=== PATIENT | female | born 1975 ===

== ENCOUNTER 2025-07-14 18:08 | Emergency (ER) | payer MEDICAID, SELFPAY ==
[2025-07-14 18:13] VITALS: BP 129/78; PULSE 78; RESP 18; TEMP 36.7; O2SAT 98; BMI 34.0
[2025-07-14 18:26] LABS: MANUAL DIFF FLAG NO
[2025-07-14 18:29] LABS: Hematocrit 42.5 % (37.0-47.0); Hemoglobin 14.3 g/dl (12.0-16.0); Imm Gran Abs Auto 0.02 X10*3/uL (0.00-0.03); Imm Gran Pct Auto 0.3 % (0.0-0.4); Lymphocytes Absolute Auto 2.2 X10*3/uL (1.2-4.9); Mean Corpuscular HGB Conc 33.6 g/dl (31.0-35.0); Mean Corpuscular Hemoglobin 30.1 pg (27.0-33.0); Mean Corpuscular Volume 89.5 fL (80.0-98.0); NRBC Abs Auto 0.000 X10*3/uL (0.0-0.012); NRBC Pct Auto 0.0 /100WBC (0.0-0.2); Platelet Count 337 X10*3/uL (160-400); Red Blood Count 4.75 X10*6/uL (4.20-5.50); White Blood Count 7.4 X10*3/uL (4.8-10.8)
[2025-07-14 18:30] LABS: Appearance Urine Clear; Glucose Urine UA Negative (Negative); PH 6.0 (5.0-9.0); Specific Gravity - Urine 1.015 (1.005-1.025); UMIC TRIGGER UACC YES
--- NOTE | 2025-07-14 18:33 | ED.FEMALEGU ---
HPI - Female Genitourinary General Chief complaint: Urogenital-Female Stated complaint: UTI Time Seen by Provider: 07/14/25 22:30 Source: patient, RN notes reviewed and old records reviewed Mode of arrival: ambulatory Limitations: no limitations History of Present Illness ED Provider: Abby MCMANUS Narrative: 50-year-old female presents for evaluation of pelvic pain and burning with urination. Denies any vaginal discharge. She reports that she has ?swelling inside the vagina. ? She reports she felt as if her symptoms started with a yeast infection and she tried some sjxo-zfv-ajzqide yeast treatment which was unsuccessful. The patient also reports a history of bacterial vaginosis and states this feels similar. She reports that she has been monogamous with 1 partner in his not concerned for sexually transmitted infection Denies any fevers, chills, abdominal pain Related Data Previous Rx's ?Medication ?Instructions ?Recorded fluconazole 150 mg tablet 150 mg PO ONCE #1 tab 07/14/25 metronidazole 0.75 % (37.5 mg/5 1 appful vaginal BID 5 days #70 07/14/25 gram) vaginal gel (Vandazole) grams Allergies Allergy/AdvReac Type Severity Reaction Status Date / Time aspirin Allergy Gastrointestinal Verified 07/14/25 18:16 Upset Sulfa (Sulfonamide Allergy Hives Verified 07/14/25 18:16 Antibiotics) Review of Systems Constitutional: Constitutional: Denies body ache(s), Denies chills and Denies fever(s) Eyes: Eyes: Denies blurry vision ENT: Denies vertigo and Denies dizziness Cardiovascular: Cardiovascular: Denies chest pain Gastrointestinal: Gastrointestinal: Denies abdominal pain Genitourinary: Genitourinary: Denies difficulty voiding, Reports genital pruritis, Reports dysuria, Reports pelvic pain and Denies vaginal discharge Musculoskeletal: Musculoskeletal: Denies back pain Integumentary/Breasts: Skin/Breast: Denies rash Neurologic: Denies vertigo and Denies dizziness PMFSH Social History Social History Use of substances other than those prescribed or required for medical reasons: No Advance Directives: No Advance Directives Information Provided: Yes Physical Exam Vital Signs: Vital Signs: Last Vital Signs Temp 98.0 F 07/15/25 00:02 Pulse 78 07/15/25 00:02 Resp 18 07/15/25 00:02 BP 130/80 07/15/25 00:02 Pulse Ox 99 07/15/25 00:02 O2 Del Method Room Air 07/15/25 00:02 BMI result Body Mass Index 34.0 Const: General: healthy appearing, comfortable, no acute distress, alert and awake Nutritional Appearance: well nourished Orientation/consciousness: patient oriented x3 HEENT: Head: Yes normocephalic and Yes atraumatic Eyes: Eyelids: Yes eyelids normal Conjunctivae: conjunctivae normal Sclerae: sclerae normal Corneas: corneas normal Pupils: Equal, round and reactive pupils present EOM: EOMs intact bilaterally Neck: Neck: Yes full ROM Resp: Effort & Inspection: normal respiratory effort, able to speak in complete sentences and not labored Cardio: Rate: regular rate Rhythm: regular rhythm GI: Inspection: No distended Palpation (GI): Soft to palpation, not firm, nontender, no guarding and not rigid : Other: Patient deferred Skin: General skin exam: elasticity normal Neuro: General: patient oriented x3 Cranial nerves: Yes Equal, round and reactive pupils present and Yes Bilaterally intact EOM present Cognition (Neuro): normal cognition Course Course Course Narrative: RME: 50 year female presents to ED for dysuria any increased urinary frequency without any nausea or vomiting. Labs UA ordered Medications Administered Discontinued Medications Generic Name Dose Route Start Last Admin Trade Name Ruy PRN Reason Stop Dose Admin Fluconazole 150 mg 07/14/25 22:52 07/14/25 23:17 Fluconazole 150 Mg Tablet PO 07/14/25 22:53 150 mg ONCE ONE Administration Medical Decision Making Medical Decision Making [facility] Narrative: 50-year-old female presents for evaluation of vaginal itching and burning. She feels her symptoms are consistent with a UTI, she tried to treat herself with cryr-ekh-wqdznkx medications and was not successful. I recommended a pelvic examination as the patient has already failed zetg-egy-etxqjcd treatment. She would prefer self swabs. Her labs are reassuring, urinalysis is negative for UTI. I agree to give her Diflucan treatment for today and 1 week from today. I do not feel it is appropriate to start oral metronidazole without documentation of bacterial vaginosis or Trichomonas, but I did give her a prescription for vaginal suppositories. Swabs result positive for BV or Trichomonas, we can call in a prescription for metronidazole Differential Diagnosis Differential Diagnoses: The differential diagnosis associated with the presentation includes Vaginitis Urethritis UTI Gonorrhea Chlamydia Lab Data MDM Lab Attestation statement: I reviewed the patient's lab results. No leukocytosis or anemia. Normal platelet count. No significant electrolyte abnormalities warranting dimension. 07/14/25 18:22 07/14/25 18:22 Labs: Lab Results 07/14/25 07/14/25 Range/Units 18:22 23:17 WBC 7.4 (4.8-10.8) X10*3/uL RBC 4.75 (4.20-5.50) X10*6/uL Hgb 14.3 (12.0-16.0) g/dl Hct 42.5 (37.0-47.0) % MCV 89.5 (80.0-98.0) fL MCH 30.1 (27.0-33.0) pg MCHC 33.6 (31.0-35.0) g/dl RDW 12.8 (11.0-16.0) % Plt Count 337 (160-400) X10*3/uL MPV 9.6 (9.4-12.3) fL Immature Gran % (Auto) 0.3 (0.0-0.4) % Neut % (Auto) 60.5 (45-73) % Lymph % (Auto) 29.7 (20-40) % Ware % (Auto) 7.7 (2-11) % Eos % (Auto) 1.3 (0-4) % Baso % (Auto) 0.5 (0-2) % Lymph # (Auto) 2.2 (1.2-4.9) X10*3/uL Ware # (Auto) 0.6 (0.1-1.2) X10*3/uL Eos # (Auto) 0.1 (0.0-0.4) X10*3/uL Baso # (Auto) 0.0 (0.0-0.2) X10*3/uL Abs Immat Gran (auto) 0.02 (0.00-0.03) X10*3/uL Absolute Neuts (auto) 4.5 (2.0-8.3) x10*3/uL Absolute Nucleated RBC 0.000 (0.0-0.012) X10*3/uL Nucleated RBC % (auto) 0.0 (0.0-0.2) /100WBC Sodium 141 (135-145) mmol/L Potassium 3.7 (3.3-5.1) mmol/L Chloride 108 (96-108) mmol/L Carbon Dioxide 25 (22-29) mmol/L Anion Gap 12 (12-20) BUN 14 (9-16) mg/dL Creatinine 0.85 (0.5-1.4) mg/dL Estim Creat Clear Calc 75.1 Estimated GFR > 60 Random Glucose 100 (60-115) mg/dL Calcium 9.2 (8.4-10.2) mg/dL Total Bilirubin 0.4 (0.0-1.0) mg/dL AST 21 (5-31) U/L ALT 24 (0-31) U/L Alkaline Phosphatase 107 (39-117) U/L Total Protein 7.9 (6.5-8.0) g/dL Albumin 4.8 (3.5-5.0) g/dL Beta HCG, Quant < 2 mIU/mL Urine Color Yellow Urine Appearance Clear Urine pH 6.0 (5.0-9.0) Ur Specific Arrey 1.015 (1.005-1.025) Urine Protein Negative (Neg-Trace) mg/dL Urine Glucose (UA) Negative (Negative) mg/dL Urine Ketones Negative (Negative) mg/dL Urine Blood Trace H (Negative) Urine Nitrite Negative (Negative) Ur Leukocyte Esterase Negative (Negative) Urine RBC 3-5 H (0-2) /HPF Urine WBC 0-5 (0-5) /HPF Ur Squamous Epith Cells 0-2 (0-2) /HPF Urine Bacteria None Seen (None Seen) Hyaline Casts 0-2 (0-2) /LPF Urine Test NEGATIVE (NEGATIVE) Chlam trachomat DNA PCR NOT DETECTED (Not Detect.) N.gonorrhoeae DNA (PCR) NOT DETECTED (Not Detect.) T. vaginalis (PCR) NOT DETECTED (Not Detect) Bact vaginosis (PCR) NEGATIVE (Negative) C. krusei/glabrata (PCR) NOT DETECTED (Not Detect) Dominique group (PCR) NOT DETECTED (Not Detect) Discharge Plan Discharge Clinical Impression: Vaginitis Patient Disposition: Home, Self-Care Instructions: Bacterial Vaginosis (ED) Additional Instructions: Your swabs are pending. You were given a dose of Diflucan antifungal medication. Take another dose in 1 week. I recommend using the metronidazole suppository as prescribed. We will call you if there are any concerning findings on the pelvic swabs Prescriptions: New fluconazole 150 mg tablet 150 mg PO ONCE Qty: 1 0RF Rx Instructions: to be taken on 07/21/25 metronidazole [Vandazole] 0.75 % (37.5mg/5 gram) gel 1 appful vaginal BID 5 Days Qty: 70 0RF Interventions: ED Discharge Assessment Last Done: 07/15/25 00:02 Discharge Date/Time: 07/15/25 00:03 Print Language: Malagasy
[2025-07-14 18:38] LABS: UPreg QC Valid YES
[2025-07-14 18:47] LABS: Alanine Aminotransferase 24 U/L (0-31); Albumin Level 4.8 g/dL (3.5-5.0); Alkaline Phosphatase 107 U/L (39-117); Anion Gap 12 (12-20); Aspartate Amino Transferase 21 U/L (5-31); Blood Urea Nitrogen 14 mg/dL (9-16); Calcium 9.2 mg/dL (8.4-10.2); Carbon Dioxide 25 mmol/L (22-29); Chloride 108 mmol/L (96-108); Creatinine Clr Calc Pharmacy 75.1; Estimated Glomerular Filt Rate > 60; Potassium 3.7 mmol/L (3.3-5.1); Sodium 141 mmol/L (135-145); Total Protein 7.9 g/dL (6.5-8.0)
--- OUTSIDE RECORDS SUMMARY | 2025-07-14 22:31 | XMS_ITS | Encounter Summary ---
Author Organization [facility] Address [address] [place] [address] Phone Care Team Providers Care Global Analytics Head Name Role Phone NuhaAdy wu Primary Care Provider +1- [phone] Encounter Details Date Type Department Care Team (Late Contact Info) Description 07/23/2023 Telephone [facility] [place] [address] [place] [phone] Janet Mae Social History Tobacco Use Types Packs/Day Years Used Date Smoking Tobacco: Some Days Cigarettes 0.1 5.6 Started: 12/14/2019 Smokeless Tobacco: Never Comments:pt states 1-2 cigar ettes per day Alcohol Use Standard Drinks/Week Comments Yes 0 (1 standard drink = 0.6 oz pur e alcohol) social AUDIT-C Answer Date Recorded Frequency of Alcohol Consumption 2-4 times a fri10/15/2019 Average Number of Drinks 1 or 2 020 Frequency of Binge Drinking Never 10/02 PHQ-2 Answer Date Recorded PHQ-2 Score 0 02/27/2021 Comments No Sex and Gender Information Value Date Recorded Sex Assigned at Female 04/16/2024 10:24 AM EDT Legal Sex Female 12:31 AM EDT Gender Identity Not on file Sexual Orientation Not on file documented as of this encounter Plan of Treatment Not on file documented as of this encounter Visit Diagnoses Not on filedocumented in this encounter Additional Health Concerns Assessment Noted Time PHQ-9 Depression Total Score: 0 02/28/20 21 4:24 PM EDT A Body Mass Index follow-up plan has been documented for the patient 03/01/2021 8:33 AM EDT PHQ-2 Depression Total Score: 0 02/28/20 21 4:24 PM EDT documented as of this encounter Care Teams Global Analytics Head Relationship Specialty Start Date End Date Ady Breen DO [address] [place] [address] [place] [address] PCP - General 09/23/17 documented as of this encounter
--- OUTSIDE RECORDS SUMMARY | 2025-07-14 22:31 | XMS_ITS | Encounter Summary ---
Author Organization [facility] Address [address] [facility] [place] [address] Phone Care Team Providers Care Webbing Seamer Pound Net Name Role Phone NuhaAdy wu Primary Care Provider +1- [phone] Encounter Details Date Type Department Care Team (Late st Contact Info) Description 08/10/2021 Telephone [facility] [place] [address] [place] [phone] Associates, Psychiatric [address] [place] [address] Social History Tobacco Use Types Packs/Day Years Used Date Smoking Tobacco: Some Days Cigarettes Smokeless Tobacco: Never Comments:pt states 1-2 cigar [...] filedocumented in this encounter Additional Health Concerns Infection Onset Date Last Indicated Resolved Time COVID-19 Rule-Out 08/13/2021 08/13/2021 08/14/2021 3:01 PM EST Assessment Noted Time PHQ-9 Depression Total Score: 0 02/28/20 21 4:24 PM EDT A Body Mass Index follow-up plan has been documented for the patient 03/01/2021 8:33 AM EDT PHQ-2 Depression Total Score: 0 02/28/20 21 4:24 PM EDT documented as of this encounter Care Teams Webbing Seamer Pound Net Relationship Specialty Start Date End Date Ady Breen DO [address] [place] [address] PCP - General 09/23/17 documented as of this encounter
--- OUTSIDE RECORDS SUMMARY | 2025-07-14 22:31 | XMS_ITS | Encounter Summary ---
Author Organization [facility] Address [address] [facility] [place] [address] Phone Care Team Providers Care Cloud Architect Name Role Phone Ady Breen Primary Care Provider +1- [phone] Encounter Details Date Type Department Care Team (Late st Contact Info) Description 08/13/2021 Orders Only [facility] [address] [id number] [place] Exposure to COVID-19 virus Social History Tobacco Use Types Packs/Day Years [...] on file documented as of this encounter Procedures Procedure Name Priority Date/Time Associated Diagnosis Comments COVID-19/FLU A/B/RSV CONFIRMATORY PCR(2 HR TAT) Routine 08/13/2021 5:49 PM EST Exposure to COVID-19 virus documented in this encounter Results * COVID19, Influenza A/B, RSV PCR, [facility] - Collected at [facility] (08/13/2021 5:49 PM EST) SARS-CoV-2 Negative Negative [facility] 08/14/2021 3:01 PM EST [facility] Comment: INFLUENZA A PCR Negative Negative [facility] 08/14/2021 3:01 PM EST [facility] Comment: INFLUENZA B PCR Negative Negative [facility] 08/14/2021 3:01 PM EST [facility] Comment: RSV PCR Negative Negative [facility] 08/14/2021 3:01 PM EST [facility] Comment: Nares Nasal structure / Unknown 08/13/2021 5:49 PM EST 08/13/2021 5:49 PM EST Narrative [facility] - 08/14/2021 3:01 PM EST Jerrell MONTALVO MICROBIOLOGY - GENERAL ORDERABLE S Final Result [facility] [address] [facility] [place] [address], documented in this encounter Visit Diagnoses Diagnosis Exposure to COVID-19 virus documented in this encounter Additional Health Concerns Infection [...] documented as of this encounter Care Teams Cloud Architect Relationship Specialty Start Date End Date Ady Breen DO [address] [place] [address] [place] [address] PCP - General 09/23/17 documented as of this encounter
--- OUTSIDE RECORDS SUMMARY | 2025-07-14 22:31 | XMS_ITS | Encounter Summary ---
Author Organization [facility] Address [address] [place] [address] Phone Care Team Providers Care Clam Bed Worker Name Role Phone Ady Breen DO Primary Care Provider +1- [phone] Reason for Referral * Radiology (Routine) - Authorized Specialty Diagnoses / Procedures Referred By Laurence manuel Referred To Contact Diagnoses Abnormal mammogram Procedures US breast left limited (diagnostic) Ady Breen DO [address] [place] [address] Phone: tel: fax: Referral ID Status Reason Start Date Expiration Date V isits Requested Visits Authorized [id number] Authorized 06/13/2025 06/13/2026 1 1 * Mammo/Dexa (Routine) - Authorized Specialty Diagnoses / Procedures Referred By Laurence manuel Referred To Contact Diagnoses Abnormal mammogram Procedures Mammo diagnostic bilateral w 3d and cad Ady Breen DO [address] [place] [address] Phone: tel: fax: Referral ID Status Reason Start Date Expiration Date V isits Requested Visits Authorized [id number] Authorized 06/13/2025 06/13/2026 1 1 Encounter Details Date Type Department Care Team (Late st Contact Info) Description 06/13/2025 Results [facility] [place] [id number] Ady Breen DO [address] [place] [address] [place] [address] US breast left limited (diagnostic) Social History Tobacco Use Types Packs/Day Years Used Date Smoking Tobacco: Former Cigarettes 0.1 5.7 S tarted: 12/14/2019 Passive Smoke Exposure: Current Smokeless Tobacco: Never Comments:pt states 1-2 cigar ettes per week Alcohol Use Standard Drinks/Week Comments Yes 2 (1 standard drink = 0.6 oz pur e alcohol) social AUDIT-C Answer Date Recorded Frequency of Alcohol Consumption 2-4 times a fri10/15/2019 Average Number of Drinks 1 or 2 020 Frequency of Binge Drinking Never 10/02 PHQ-2 Answer Date Recorded PHQ-2 Score 0 02/27/2021 Nursing IPS Answer Date Recorded Feels Physically and Emotionally Safe Not on karena e 03/14/2025 Physically Hurt by Someone Not on file 03/14 Humiliated or Emotionally Abused by Someone Not on file 03/14/2025 Within the last year, have y ou felt unsafe or afraid because someone hurt or threatened you? No 03/14/2025 Within the last year, have y ou felt unsafe or afraid because someone hurt or threatened you? No 03/14/2025 Nursing: Inadequate Housing Risk Classification Answer Date Recorded Has Housing Not on file 03/14/2025 Worried About Losing Housing Not on file Unable to Get Utilities Not on file 03/14/20 25 Within the last year, was th ere a time you were unable to pay rent/mortgage or homeless or living in a long term? No 03/14/2025 Within the last year, was th ere a time you were unable to pay rent/mortgage or homeless or living in a long term? No 03/14/2025 Nursing - Inadequate Food Risk Classification An swer Date Recorded Worried About Running Out of Food in the Last Ye ar Not on file 03/14/2025 Ran Out of Food in the Last Year Not on file 03/14/2025 Within the past year, was th ere a time when your food ran out before you got the money to buy more? Never true 03/14/2025 Nursing - Transportation Risk Classification Ans wer Date Recorded Lack of Transportation Not on file Within the last year, has la ck of transportation kept you from work or doctor s appointments or from getting medications? No 03/14/2025 Nursing - Utilities Risk Classification Answer Date Recorded Unable to Get Utilities Not on file 03/14/20 Within the last year, has th e water, electric, gas, or oil company threatened to shut off services in your home? No 03/14/2025 Comments No Sex and Gender Information Value Date Recorded Sex Assigned at Female 04/16/2024 10:24 AM EDT Legal Sex Female 12:31 AM EDT Gender Identity Not on file Sexual Orientation Not on file documented as of this encounter Plan of Treatment Scheduled Orders Name Type Priority Associated Diagnoses Orde r Schedule Mammo diagnostic bilateral w 3d and cad Imaging Routine Abnormal mammogram Expected: 12/12/2025, Expires: 06/13/2029 US breast left limited (diagnostic) Imaging Routine Abnormal mammogram Expected: 12/12/2025, Expires: 06/13/2029 documented as of this encounter Visit Diagnoses Diagnosis Abnormal mammogram- Primary Abnormal mammogram, unspecified documented in this encounter Additional Health Concerns Assessment Noted Time PHQ-9 Depression Total Score: 0 03/23/20 25 1:21 PM EDT A Body Mass Index follow-up plan has been documented for the patient 03/01/2021 8:33 AM EDT PHQ-2 Depression Total Score: 0 02/28/20 21 4:24 PM EDT documented as of this encounter Care Teams Clam Bed Worker Relationship Specialty Start Date End Date Ady Breen DO [address] [place] [address] PCP - General 09/23/17 documented as of this encounter
--- OUTSIDE RECORDS SUMMARY | 2025-07-14 22:31 | XMS_ITS | Encounter Summary ---
Author Organization [facility] Address [address] [place] [address] Phone Care Team Providers Care Work And Family Life Consultant Name Role Phone Ady Breen DO Primary Care Provider +1- [phone] Encounter Details Date Type Department Care Team (Latest Contact Info) Description 05/23/2021 Transcribe Orders [facility] Central Scheduling [address] [place] [address] Jerrell Valdivia CRNP Encounter for screening mammogram for malignant neoplasm of breast (Primary Dx) Social History Tobacco Use Types Packs/Day Years Used Date Smoking Tobacco: Some Days Cigarettes Smokeless Tobacco: Never Comments:pt states 1-2 cigar ettes per day Alcohol Use Standard Drinks/Week Comments Yes 0 (1 standard drink = 0.6 oz pur e alcohol) 1 per week AUDIT-C Answer Date Recorded Frequency of Alcohol [...] on file Sexual Orientation Not on file COVID-19 Exposure Response Date Recorded In the last month, have you been in contact with someone who was confirmed or suspected to have Coronavirus / COVID-19? No / Unsure 05/23/2021 9:45 AM EDT documented as of this encounter Plan of Treatment Not on file documented as of this encounter Visit Diagnoses Diagnosis Encounter for screening mammogram for malignant neoplasm of breast- Primary documented in this encounter Additional Health Concerns [...] documented as of this encounter Care Teams Work And Family Life Consultant Relationship Specialty Start Date End Date Ady Breen DO [address] [place] [phone] PCP - General 09/23/17 documented as of this encounter
--- OUTSIDE RECORDS SUMMARY | 2025-07-14 22:31 | XMS_ITS | Encounter Summary ---
Author Organization [facility] Address [address] [place] [address] Phone Care Team Providers Care Command Center Officer Name Role Phone Ady Breen Primary Care Provider +1- [phone] Encounter Details Date Type Department Care Team (Late st Contact Info) Description 04/16/2024 Transcribe Orders [facility] [address] [facility] [place] [address] Kelley Isidro PA-C [address] [facility] [address] [place] [phone] Xerostomia (Primary Dx) Social History Tobacco Use Types Packs/Day Years Used Date Smoking Tobacco: Some Days Cigarettes 0.1 5.7 Started: 12/14/2019 Passive Smoke Exposure: Current Smokeless Tobacco: Never Comments:pt states 1-2 cigar ettes per week Alcohol Use Standard Drinks/Week Comments Yes 0 (1 standard drink = 0.6 oz pur e alcohol) social AUDIT-C Answer Date Recorded Frequency of Alcohol Consumption 2-4 times a fri10/15/2019 Average Number of Drinks 1 or 2 020 Frequency of Binge Drinking Never 10/02 PHQ-2 Answer Date Recorded PHQ-2 Score 0 02/27/2021 Comments Unknown Sex and Gender Information Value Date Recorded Sex Assigned at Female 04/16/2024 10:24 AM EDT Legal Sex Female 12:31 AM EDT Gender Identity Not on file Sexual Orientation Not on file documented as of this encounter Plan of Treatment Not on file documented as of this encounter Results * Sjogren's Antibodies (04/16/2024 11:04 AM EDT) SS-A (RO) Ab <0.2 0.0 - 0.9 AI 04/17/2024 12:05 PM EDT [facility] SS-B (LA) Ab <0.2 0.0 - 0.9 AI 04/17/2024 12:05 PM EDT [facility] Blood Structure of right upper limb / Unknown Venipuncture / Unknown 04/16/2024 11:04 AM EDT 04/16/2024 11:07 AM EDT Narrative [facility] - 04/17/2024 12:05 PM EDT Performed at: [address] [id number] Siderographer: Abi Martinez MD, Phone: [phone] us Kelley Isidro PA-C LAB BLOOD ORDERABLES Final R esult [facility] [address] [place] [address], documented in this encounter Visit Diagnoses Diagnosis Xerostomia- Primary Disturbance of salivary secretion documented in this encounter Additional Health Concerns Assessment Noted Time PHQ-9 Depression Total Score: 6 02/02/20 24 4:03 PM EDT A Body Mass Index follow-up plan has been documented for the patient 03/01/2021 8:33 AM EDT PHQ-2 Depression Total Score: 0 02/28/20 21 4:24 PM EDT documented as of this encounter Care Teams Command Center Officer Relationship Specialty Start Date End Date Ady Breen DO [address] [place] [phone] PCP - General 09/23/17 documented as of this encounter
--- OUTSIDE RECORDS SUMMARY | 2025-07-14 22:31 | XMS_ITS | Encounter Summary ---
Author Organization [facility] Address [address] [place] [address] Phone Care Team Providers Care Wringer And Setter Name Role Phone Ady Breen Primary Care Provider [phone] Encounter Details Date Type Department Care Team (Latest Contact Info) Description 09/24/2017 Lab Requisition [facility] [address] [place] [phone] Walter Dowling DO [address] [facility] [address] [place] [address] Encounter for screening for infections with predominantly sexual mode of transmission; Encounter for screening for human papillomavirus (HPV) Social History Tobacco Use Types Packs/Day Years Used Date Smoking Tobacco: Never Assessed Comments Unknown Sex and Gender Information Value Date Recorded Sex Assigned at Female 04/16/2024 10:24 AM EDT Legal Sex Female 12:31 AM EDT Gender Identity Not on file Sexual Orientation Not on file documented as of this encounter Plan of Treatment Not on file documented as of this encounter Procedures Procedure Name Priority Date/Time Associated Diagnosis Comments HPV HIGH RISK Routine 09/22/2017 Encounter for screening for infections with predominantly sexual mode of transmission Encounter for screening for human papillomavirus (HPV) CHLAMYDIA /GC AMPLIFIED DNA Routine 09/22/2017 Encounter for screening for infections with predominantly sexual mode of transmission Encounter for screening for human papillomavirus (HPV) LIQUID-BASED PAP, SCREENING Routine 09/22/2017 Encounter for screening for infections with predominantly sexual mode of transmission Encounter for screening for human papillomavirus (HPV) documented in this encounter Results * HPV High Risk (09/22/2017) HPV, High Risk HPV NEG, HPV16 NEG, HPV18 NEG HPV NEG, HPV16 NEG, HPV18 NEG 09/26/2017 11:51 AM EST [facility] Specimen from genital system (specimen) 09/22/2017 09/25/2017 8:53 AM EST Narrative [facility] - 09/26/2017 11:51 AM EST Other High Risk HPV Negative, HPV 16 Negative, HPV 18 Negative. HPV types: 16,18,31,33,35,39,45,51,52,56,58,59,66 and 68 DNA are undetectable or below the pre-set threshold. [employer] s FDA approved Jay 4800 is utilized with strict adherence to the plumber assistant s instruction manual to test for the presence of High-Risk HPV DNA, as well as HPV 16 and HPV 18. This instrument has been validated by our laboratory and/or by the plumber assistant. A negative result does not preclude the presence of HPV infection because results depend on adequate specimen collection, absence of inhibitors and sufficient DNA to be detected. Additionally, HPV negative results are not intended to prevent women from proceeding to colposcopy if clinically warranted. Positive HPV test results indicate the presence of any one or more of the high risk types, but since patients are often co-infected with low-risk types it does not rule out the presence of low-risk types in patients with mixed infections. us Walter Dowling DO MICROBIOLOGY - GENERAL ORDERABL ES Final Result [facility] [address] [place] [address], * Chlamydia/GC amplified DNA by PCR (09/22/2017) N gonorrhoeae, DNA Probe Negative N. gonorrhoeae Amplified DNA Negative 09/25/2017 12:00 AM EST [facility] Chlamydia, DNA Probe C. trachomatis Amplified DNA Negative C. trachomatis Amplified DNA Negative 09/25/2017 12:00 AM EST [facility] Specimen from genital system (specimen) Endocervical structure / Unknown 09/22/2017 09/24/2017 2:28 PM EST Walter Dowling DO MICROBIOLOGY - GENERAL ORDERABL ES Final Result [facility] [address] [place] [address] [place] [address], * Liquid-based pap, screening (09/22/2017) Case Report Gynecologic Cytology Report Case: [id number] Authorizing Provider: Walter Dowling DO Collected: 09/22/2017 First Screen: BARBER Dillon Received: 09/25/2017 0853 Specimen: LIQUID-BASED PAP, SCREENING, Endocervical 09/29/2017 2:34 PM EST [facility] Primary Interpretation Negative for intraepithelial lesion or malignancy 09/29/2017 2:34 PM EST [facility] at 1434 EST Specimen Adequacy Satisfactory for evaluation. Endocervical/power sformation zone component present. 09/29/2017 2:34 PM EST [facility] High Risk HPV Result HPV, High Risk: HPV NEG, HPV16 NEG, HPV18 NEG Other High Risk HPV Negative, HPV 16 Negative, HPV 18 Negative. HPV types: 16,18,31,33,35,39 ,45,51,52,56,58,5 9,66 and 68 DNA are undetectable or below the pre-set threshold. [employer] s FDA approved Jay 4800 is utilized with strict adherence to the plumber assistant s instruction manual to test for the presence of High-Risk HPV DNA, as well as HPV 16 and HPV 18. This instrument has been validated by our laboratory and/or by the plumber assistant. A negative result does not preclude the presence of HPV infection because results depend on adequate specimen collection, absence of inhibitors and sufficient DNA to be detected. Additionally, HPV negative results are not intended to prevent women from proceeding to colposcopy if clinically warranted. Positive HPV test results indicate the presence of any one or more of the high risk types, but since patients are often co-infected with low-risk types it does not rule out the presence of low-risk types in patients with mixed infections. 09/29/2017 2:34 PM EST [facility] Additional Information [employer]'s FDA approved T2000, T3000 and ThinPrep Imaging System are utilized with strict adherence to the plumber assistant's instruction manual to prepare gynecologic and non-gynecologic cytology specimens for the production of ThinPrep slides as well as for gynecologic ThinPrep imaging. These processes have been validated by our laboratory and/or by the plumber assistant. The Pap test is not a diagnostic procedure and should not be used as the sole means to detect cervical cancer. It is only a screening procedure to aid in the detection of cervical cancer and its precursors. Both false-negative and false-positive results have been experienced. Your patient's test result should be interpreted in this context together with the history and clinical findings. 09/29/2017 2:34 PM EST [facility] LMP 08/31/2017 09/29/2017 2:34 PM EST [facility] Specimen from genital system (specimen) Endocervical structure / Unknown 09/22/2017 09/25/2017 8:53 AM EST Walter Dowling DO PATHOLOGY/CYTOLOGY ORDERABLES F inal Result [facility] [address] [facility] [place] [address], documented in this encounter Visit Diagnoses Diagnosis Encounter for screening for infections with predominantly sexual mode of transmission Encounter for screening for human papillomavirus (HPV) documented in this encounter Additional Health Concerns Infection Onset Date Last Indicated Resolved Time COVID-19 Rule-Out 03/15/2020 03/15/2020 03/21/2020 6:06 PM EDT COVID-19 Rule-Out 08/13/2021 08/13/2021 08/14/2021 3:01 PM EST documented as of this encounter Care Teams Wringer And Setter Relationship Specialty Start Date End Date Ady Breen DO [address] [place] [address] [place] [address] PCP - General 09/23/17 documented as of this encounter
--- OUTSIDE RECORDS SUMMARY | 2025-07-14 22:31 | XMS_ITS | Encounter Summary ---
Author Organization [facility] Address [address] [place] [address] Phone Care Team Providers Care Adult Protective Caseworker Name Role Phone Ady Breen Primary Care Provider [phone]- [phone] Encounter Details Date Type Department Care Team (Late st Contact Info) Description 12/01/2021 Transcribe Orders [facility] [address] [place] [phone] Kristen Sotomayor Social History Tobacco Use Types Packs/Day Years [...] documented as of this encounter Care Teams Adult Protective Caseworker Relationship Specialty Start Date End Date Ady Breen DO [address] [place] [id number] PCP - General 09/23/17 documented as of this encounter
--- OUTSIDE RECORDS SUMMARY | 2025-07-14 22:31 | XMS_ITS | Encounter Summary ---
Author Organization [facility] Address [address] [place] [address] Phone Care Team Providers Care Marking Stitcher Name Role Phone Ady Breen DO Primary Care Provider [phone]- [phone] Reason for Referral * Radiology (Routine) - Closed Specialty Diagnoses / Procedures Referred By Laurence manuel Referred To Contact Diagnoses Abnormal findings on diagnostic imaging of breast Procedures US breast left limited (diagnostic) Ady Breen DO [address] [place] [address] Phone: tel: fax: Referral ID Status Reason Start Date Expiration Date Visits Re quested Visits Authorized [id number] Closed 03/09/2024 03/09/2025 1 1 * Mammo/Dexa (Routine) - Closed Specialty Diagnoses / Procedures Referred By Laurence manuel Referred To Contact Diagnoses Abnormal findings on diagnostic imaging of breast Procedures Mammo diagnostic bilateral w 3d & cad Ayd Breen DO [address] [place] [address] Phone: tel: fax: Referral ID Status Reason Start Date Expiration Date Visits Re quested Visits Authorized [id number] Closed 03/09/2024 03/09/2025 1 1 Encounter Details Date Type Department Care Team (Latest Contact Info) Description 03/09/2024 Transcribe Orders [facility] [address] [place] [address] [facility] [place] [address] Abnormal findings on diagnostic imaging of breast (Primary Dx) Social History Tobacco Use Types Packs/Day Years Used Date Smoking Tobacco: Some Days Cigarettes 0.1 5.6 Started: 12/14/2019 Passive Smoke Exposure: Current Smokeless [...] documented as of this encounter Results * US breast left limited (diagnostic) (09/17/2024 11:45 AM EST) Anatomical Region Laterality Modality Breast Left Ultrasound Impressions 09/17/2024 11:59 AM EST New 17 mm probable cyst left breast 1 o'clock position. 6-month follow-up ultrasound is recommended to confirm stability of this finding. Complicated cyst at the 12 o'clock position 6 cm from the nipple appears less cystic on today's exam likely reflecting partial involution. This too can be reassessed at time of 6-month follow-up. Stable complicated cyst left breast 12 o'clock position 5 cm from the nipple. Stable appearance of the left breast. ASSESSMENT/BI-RADS CATEGORY: Left: 3 - Probably Benign Right: 1 - Negative Overall: 3 - Probably Benign RECOMMENDATION: - Ultrasound in 6 months for the left breast. - Routine screening mammogram in 1 year for the right breast. Workstation ID: [id number] Signed by: Evan Sandhu MD Narrative 09/17/2024 11:59 AM EST DIAGNOSIS: Abnormal findings on diagnostic imaging of breast TECHNIQUE: Digital diagnostic mammography was performed. Computer Aided Detection (CAD) analyzed all applicable images. COMPARISONS: Prior breast imaging dated: 03/09/2024, 09/09/2023, 08/21/2023, 07/10/2022, 05/30/2021, 08/31/2019, 08/21/2019, and 10/16/2017 RELEVANT HISTORY: Family Breast Cancer History: No known family history of breast cancer. Family Medical History: No known relevant family medical history. Personal History: Hormone history includes control. Surgical history includes oophorectomy. No known relevant medical history. RISK ASSESSMENT: 5 Year Tyrer-Cuzick: 0.52% 10 Year Tyrer-Cuzick: 1.13% Lifetime Tyrer-Cuzick: 5.73% TISSUE DENSITY: There are scattered areas of fibroglandular density. INDICATION: Pili Belle is a 49 y.o. female presenting for 6. FINDINGS: LEFT 1) CYST [B] US breast left limited (diagnostic): There are 9 mm x 8 mm x 7 mm oval clustered microcysts with circumscribed margins seen in the left breast at 12 o'clock in the middle depth, 6 cm from the nipple. This appears less cystic on today's exam likely representing partial involution. 2) MASS [C] Mammo diagnostic bilateral w 3d & cad: There is an 11 mm x 7 mm x 4 mm oval mass with circumscribed margins seen in the left breast at 12 o'clock, 5 cm from the nipple. US breast left limited (diagnostic): There is an 11 mm x 7 mm x 4 mm oval, parallel, hypoechoic mass with circumscribed margins with no posterior features seen in the left breast at 12 o'clock, 5 cm from the nipple. Compared to the previous study, there are no significant changes. 3) MASS [D] Mammo diagnostic bilateral w 3d & cad: There is a 17 mm equal density, oval mass with circumscribed margins seen in the left breast at 1 o'clock, 4 cm from the nipple. US breast left limited (diagnostic): There is a 12 mm x 6 mm x 17 mm oval mass with circumscribed margins seen in the left breast at 1 o'clock, 4 cm from the nipple. There are 2 pain markers over the upper outer left breast in the general vicinity of the above described masses. There is no suspicious mass, microcalcification, skin thickening or architectural distortion elsewhere in the left breast. Right Mammo diagnostic bilateral w 3d & cad There are no suspicious masses, grouped microcalcifications or areas of unexplained architectural distortion. The skin and nipple areolar complex are unremarkable. us Ady Breen DO IMG US ORDERABLES Final Re sult * Mammo diagnostic bilateral w 3d & cad (09/17/2024 11:09 AM EST) Anatomical Region Laterality Modality Breast Bilateral Mammography Impressions 09/17/2024 11:59 AM EST New 17 mm probable cyst left breast 1 o'clock position. 6-month follow-up ultrasound is recommended to confirm stability of this finding. Complicated cyst at the 12 o'clock position 6 cm from the nipple appears less cystic on today's exam likely reflecting partial involution. This too can be reassessed at time of 6-month follow-up. Stable complicated cyst left breast 12 o'clock position 5 cm from the nipple. Stable appearance of the left breast. ASSESSMENT/BI-RADS CATEGORY: Left: 3 - Probably Benign Right: 1 - Negative Overall: 3 - Probably Benign RECOMMENDATION: - Ultrasound in 6 months for the left breast. - Routine screening mammogram in 1 year for the right breast. Workstation ID: [id number] Signed by: Evan Sandhu MD Narrative 09/17/2024 11:59 AM EST DIAGNOSIS: Abnormal findings on diagnostic imaging of breast TECHNIQUE: Digital diagnostic mammography was performed. Computer Aided Detection (CAD) analyzed all applicable images. COMPARISONS: Prior breast imaging dated: 03/09/2024, 09/09/2023, 08/21/2023, 07/10/2022, 05/30/2021, 08/31/2019, 08/21/2019, and 10/16/2017 RELEVANT HISTORY: Family Breast Cancer History: No known family history of breast cancer. Family Medical History: No known relevant family medical history. Personal History: Hormone history includes control. Surgical history includes oophorectomy. No known relevant medical history. RISK ASSESSMENT: 5 Year Tyrer-Cuzick: 0.52% 10 Year Tyrer-Cuzick: 1.13% Lifetime Tyrer-Cuzick: 5.73% TISSUE DENSITY: There are scattered areas of fibroglandular density. INDICATION: Pili Belle is a 49 y.o. female presenting for 6. FINDINGS: LEFT 1) CYST [B] US breast left limited (diagnostic): There are 9 mm x 8 mm x 7 mm oval clustered microcysts with circumscribed margins seen in the left breast at 12 o'clock in the middle depth, 6 cm from the nipple. This appears less cystic on today's exam likely representing partial involution. 2) MASS [C] Mammo diagnostic bilateral w 3d & cad: There is an 11 mm x 7 mm x 4 mm oval mass with circumscribed margins seen in the left breast at 12 o'clock, 5 cm from the nipple. US breast left limited (diagnostic): There is an 11 mm x 7 mm x 4 mm oval, parallel, hypoechoic mass with circumscribed margins with no posterior features seen in the left breast at 12 o'clock, 5 cm from the nipple. Compared to the previous study, there are no significant changes. 3) MASS [D] Mammo diagnostic bilateral w 3d & cad: There is a 17 mm equal density, oval mass with circumscribed margins seen in the left breast at 1 o'clock, 4 cm from the nipple. US breast left limited (diagnostic): There is a 12 mm x 6 mm x 17 mm oval mass with circumscribed margins seen in the left breast at 1 o'clock, 4 cm from the nipple. There are 2 pain markers over the upper outer left breast in the general vicinity of the above described masses. There is no suspicious mass, microcalcification, skin thickening or architectural distortion elsewhere in the left breast. Right Mammo diagnostic bilateral w 3d & cad There are no suspicious masses, grouped microcalcifications or areas of unexplained architectural distortion. The skin and nipple areolar complex are unremarkable. Ady Breen DO Stephany MAMMOGRAPHY ORDERABLES Final Result documented in this encounter Visit Diagnoses Diagnosis Abnormal findings on diagnostic imaging of breast- Primary Other (abnormal) findings on radiological examination of breast Abnormal findings on diagnostic imaging of breast Other (abnormal) findings on radiological examination of breast Abnormal findings on diagnostic imaging of breast Other (abnormal) findings on radiological examination of breast documented in this encounter Additional Health Concerns Assessment Noted Time PHQ-9 Depression Total Score: 6 02/02/20 24 4:03 PM EDT A Body Mass Index follow-up plan has been documented for the patient 03/01/2021 8:33 AM EDT PHQ-2 Depression Total Score: 0 02/28/20 21 4:24 PM EDT documented as of this encounter Care Teams Marking Stitcher Relationship Specialty Start Date End Date Ady Breen DO [address] [place] [phone] PCP - General 09/23/17 documented as of this encounter
--- OUTSIDE RECORDS SUMMARY | 2025-07-14 22:31 | XMS_ITS | Clinical Summary ---
Author Organization [facility] Address [address] [facility] [place] [address] Care Team Providers Care Personal Development Coach Name Role Phone Marta Ambrose MD Primary Care Provider [phone] Allergies Active Allergy Reactions Criticality Noted Date Comments Aspirin Rash Low 05/30/2022 Sulfa (Sulfonamide Antibiotics) 05/03 UTI Medications meloxicam (MOBIC) 15 MG tabletIndication s:Fibromyalgia Take 1 tablet (15 mg total) by mouth daily. 90 tablet 3 09/25/2023 Active WEGOVY 0.5 mg/0.5 mL pnij INJECT 0.5 MG UNDER THE SKIN WEEKLY Active pregabalin (LYRICA) 75 MG capsuleIndicatio ns:Fibromyalgia Take 1 in the morning, 1 in the afternoon, and 2 at bedtime. 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 Not on file Not on file Last Filed Vital Signs Vital Sign Reading Time Taken Comments Blood Pressure 132/80 09/15/2024 3:33 PM EST Pulse 71 09/15/2024 3:33 PM EST Temperature 36.5 C (97.7 F) 09/15/2024 3:33 PM EST Respiratory Rate 17 10/06/2024 2:29 PM EST Oxygen Saturation 98% 09/15/2024 3:33 PM EST Inhaled Oxygen Concentration - - Weight 78 kg (172 lb) 10/25/2024 4:03 PM EST Height 154.9 cm (5' 1 ) 10/25/2024 4:03 PM EST Body Mass Index 32.5 10/25/2024 4:03 PM EST Plan of Treatment Upcoming Encounters Date Type Department Care Team (Late st Contact Info) Description 09/15/2025 3:30 PM EST Office Visit [facility] [address] [facility] [place] [phone] Kelley Isidro PA-C [address] [facility] [address] [place] [address] Health Maintenance Due Date Last Done Comments CT Colonography 1977 Cologuard 1977 FIT 1977 HIV Screen 1977 Preventative Care Visit (40-64 y.o.) 1977 SIGMOIDOSCOPY 1977 Depression Screen* 1989 Social Drivers of Health 1995 Hepatitis B Vaccine (1 of 3 - 19+ 3-dose series) 1996 Pneumococcal Vaccine (1 of 2 - PCV) 1996 HPV/Cotest 2007 Lipid Screen 02/03/2025 02/04/2024, 04/10/2019 Influenza Vaccine* (#1) 04/01/2025 08/05/20 24, 10/02/2023, 08/02/2021, Additional history exists COVID-19 Vaccine ( season) 2025 11/09/2021, 01/17/2021, 12/20/2020 Mammogram* 09/17/2025 09/17/2024, 12/09/2022, 07/10/2022, Additional history exists Cervical Cancer Screening 10/05/2027 PAP 10/05/2027 10/05/2024, 07/02, 03/31/2006, Additional history exists Tetanus 01/15/2028 01/14/2018 Colonoscopy* 02/23/2034 02/24/2024 Colorectal Cancer Screening 02/23/2034 RSV Vaccine (1 - 1-dose 75+ series) 2052 Hepatitis C Screening Completed 10/07/2024, 022 HPV Vaccine Aged Out No longer eligi ble based on patient's age to complete this topic Procedures Procedure Name Priority Date/Time Associated Diagnosis Comments CYTO Routine 03/31/2006 3:32 PM EDT from Last 3 Months or Most Recently Relevant to Health Maintenance Results * CYTO (03/31/2006 3:32 PM EDT) Cytology SEE DETAIL [facility] MEDICINE Comment: See Detail(Note)[facility], [address] [place], [place] [address]PC#: [id number]: OFELIA, KOLBYRADOB/Sex: 1975 FProvider: ISELA TAYLORCollect Date: 03/25/[id number] DNA Testing:Result:NOT DETECTEDHigh Risk HPV DNA types (16,18,31,33,35,39,45,51,52,56,58,59,or 68) notdetected.Based on the results of the Hybrid Capture (HC2) Assay, there is a highprobability that a higher disease stage will not befound at colposcopy.Date Ordered: 03/27/2006 Date Complete:04/02/2006 Date Reported: 04/02/2006Pathologist: Electronically Released by: BARBER May (ASCP)CYTOLOGIC DIAGNOSIS:Negative for Intraepithelial Lesion or Malignancy.Adequacy:Adequate for evaluation.Electronically Signed Out by Anny Bird BA, CT(ASCP)Anny Bird BA,CTFinalized: 03/31/2006Billing Fee Codes: TPSI:G0145, PAPHPVR: HPV:[id number] Prep Pap Test, HPV Reflex RequestedSpecimen:cervical and endocervical sample: Lube Attendant screeningOncologic History/Risk Factors:{not provided}Date of Last Menstrual Period:03/12/06Menstrual History:{not provided}Contraceptive/Hormonal History: OtherInfection History:ChlamydiaTreatment History:{not provided} PAP Cytological Diagnosis CYTOLOGIC DIAGNOSIS: Negative for Intraepithelial Lesion or Malignancy. Adequacy: Adequate for evaluation. Electronically Signed Out by Anny Bird BACT(ASC P) [facility] MEDICINE PAP HPV HPV DNA Testing: Result: NOT DETECTED High Risk HPV DNA types (16,18,31,33,35,3 9,45,51,52,56,58, 59,or 68) not detected. Based on the results of the Hybrid Capture (HC2) Assay, there is a high probability that a higher disease stage will not be found at colposcopy. Date Ordered: 03/27/2006 Date Complete: [facility] 03/31/2006 3:32 PM EDT us Isela MONTALVO CYTOLOGY ORDERABLES Final Res ult [facility] [phone] [place] [phone] from Last 3 Months or Most Recently Relevant to Health Maintenance Insurance [employer] Care Teams Personal Development Coach Relationship Specialty Start Date End Date Marta Ambrose MD PCP - General 12/18/06
--- OUTSIDE RECORDS SUMMARY | 2025-07-14 22:31 | XMS_ITS | Encounter Summary ---
Author Organization [facility] Address [address] [place] [address] Phone Care Team Providers Care Advice Nurse Name Role Phone Ady Breen DO Primary Care Provider [phone]- [phone] Reason for Referral * Radiology (Routine) - Closed Specialty Diagnoses / Procedures Referred By Contac t Referred To Contact Diagnoses Abnormal findings on diagnostic imaging of breast Procedures US breast left limited (diagnostic) Ady Breen DO [address] [place] [address] Phone: tel: fax: Referral ID Status Reason Start Date Expiration Date Visits Re quested Visits Authorized [id number] Closed 09/09/2023 09/08/2024 1 1 Encounter Details Date Type Department Care Team (Latest Contact Info) Description 09/09/2023 Transcribe Orders [facility] [address] [address] Ady Breen DO [address] [place], [place] [id number] Fibromyalgia (Primary Dx); Abnormal findings on diagnostic imaging of breast Social History Tobacco Use Types Packs/Day Years [...] Results * US breast left limited (diagnostic) (03/09/2024 3:17 PM EDT) Anatomical Region Laterality Modality Breast Left Ultrasound Impressions 03/09/2024 3:35 PM EDT No significant change in left breast hypoechoic mass measuring up to 11 mm. Recommend reassessment in 6 months at the time of bilateral mammography. ASSESSMENT/BI-RADS CATEGORY: Left: 3 - Probably Benign Overall: 3 - Probably Benign RECOMMENDATION: - Ultrasound in 6 months for the left breast. - Diagnostic mammogram in 6 months for both breasts. Workstation ID: [id number] Narrative 03/09/2024 3:35 PM EDT DIAGNOSIS: Abnormal findings on diagnostic imaging of breast TECHNIQUE: Ultrasound of the left breast(s) was performed. COMPARISONS: Prior breast imaging dated: 09/09/2023, 08/21/2023, 07/10/2022, 05/30/2021, 08/31/2019, 08/21/2019, and 10/16/2017 RELEVANT HISTORY: Family Breast Cancer History: No known family history of breast cancer. Family Medical History: No known relevant family medical history. Personal History: Hormone history includes control. Surgical history includes oophorectomy. No known relevant medical history. RISK ASSESSMENT: 5 Year Tyrer-Cuzick: 0.49% 10 Year Tyrer-Cuzick: 1.1% Lifetime Tyrer-Cuzick: 5.87% INDICATION: Pili Belle is a 48 y.o. female presenting for 6 month follow up of left breast cysts. FINDINGS: LEFT 1) MASS [C]: There is an 11 mm x 7 mm x 4 mm oval, parallel, hypoechoic mass with circumscribed margins with no posterior features seen in the left breast at 12 o'clock, 5 cm from the nipple. Compared to the previous study, there are no significant changes. Ady Breen [facility] US ORDERABLES Final Re sult * Uric acid (09/25/2023 10:33 AM EST) Pathologist [facility] Uric Acid 3.3 2.0 - 7.5 mg/dL 09/25/2023 2:44 PM EST [facility] Comment:Specimen collection should occur prior to Metamizole administration due to the potential for falsely depressed results. Blood Venipuncture / Unknown 09/25/2023 10:33 AM EST 09/25/2023 10:33 AM EST Narrative [facility] - 09/25/2023 2:44 PM EST O-wfpimw-p-benzoquinone imine (metabolite of Acetaminophen) will generate erroneously low results in samples for patients that have taken an overdose of Acetaminophen. Kelley Isidro PA-C LAB BLOOD ORDERABLES Final R esult [facility] [address] [place] [address], * Ehrlichia antibody panel (09/25/2023 10:33 AM EST) Pathologist [facility] E.Chaffeensis IgG Negative Neg:<1:64 024 5:05 PM EST [facility] E.Chaffeensis IgM Negative Neg:<1:20 024 5:05 PM EST [facility] HGE IgG Titer Negative Neg:<1:64 09/29/2023 5:05 PM EST [facility] HGE IgM Titer Negative Neg:<1:20 09/29/2023 5:05 PM EST [facility] Comment: Due to a reagent backorder, this test was performed using a different assay. The reference interval for this alternate assay is: Negative <1:64 Positive 1:64 or greater RESULT/COMMENT Comment 09/29/2023 5:05 PM EST [facility] Comment: Antibody titers may be negative in the first 7-10 days of illness. A four-fold rise in IgG antibody titers for Anaplasma phagocytophilum and/or Ehrlichia chaffeensis in paired samples (acute and convalescent) supports the diagnosis of anaplasmosis and/or ehrlichiosis, respectively. Blood Venipuncture / Unknown 09/25/2023 10:33 AM EST 09/25/2023 10:33 AM EST Narrative [facility] - 09/29/2023 5:05 PM EST Performed at: [address] [place] [id number] Overnight Associate: Flores Snyder MD, Phone: [phone] Kelley Isidro PA-C LAB BLOOD ORDERABLES Final R esult Performing Organization Address [facility]/ZIP Co de Phone Number [facility] [address] [place] [address], * C-reactive protein (09/25/2023 10:33 AM EST) CRP <1.0 <3.0 mg/L 09/25/2023 2:4 4 PM EST [facility] Blood Venipuncture / Unknown 09/25/2023 10:33 AM EST 09/25/2023 10:33 AM EST Kelley Isidro PA-C LAB BLOOD ORDERABLES Final R esult [facility] [address] [place] [address], * Sedimentation rate, automated (09/25/2023 10:33 AM EST) Sed Rate 15 0 - 19 mm/hour 09/25/2023 11:17 AM EST [facility] Blood Venipuncture / Unknown 09/25/2023 10:33 AM EST 09/25/2023 10:33 AM EST Kelley FUNG-C LAB BLOOD ORDERABLES Final R esult [facility] [address] [place] [address], [place] [phone] * PRINCE Screen w/ Reflex to Titer/Pattern (09/25/2023 10:33 AM EST) PRINCE Negative Negative BIOPLEX 2200 09/26/2023 8:10 AM EST [facility] Blood Venipuncture / Unknown 09/25/2023 10:33 AM EST 09/25/2023 10:33 AM EST Narrative [facility] - 09/26/2023 8:10 AM EST Test performed on the Character Booster 2200 system using multiplex flow immunoassay methodology. A negative PRINCE Screen (or indeterminate for dsDNA) reflects antibodies absent or below the cut-off values for all the following analytes: dsDNA, Chromatin, Ribosomal P, SS-A, SS-B, Sm, SmRNP, HEALTHCARE PROF, Scl-70, Kelley-1 and Centromere B. The PRINCE Screen result should be interpreted in conjunction with other laboratory test results and clinical presentation of the patient in the diagnosis for autoimmune disease. SLE patients undergoing steroid or immunosuppressant therapy may have negative test results. Kelley DOEC LAB BLOOD ORDERABLES Final R esult Performing Organization Address [facility] Co de Phone Number [facility] [address] [address], [place] [phone] * RF Screen w/ Reflex to Titer (09/25/2023 10:33 AM EST) Rheumatoid Factor Negative Negative 09/26/2023 10:00 AM EST [facility] Blood Venipuncture / Unknown 09/25/2023 10:33 AM EST 09/25/2023 10:33 AM EST Kelley FUNG-C LAB BLOOD ORDERABLES Final R esult [facility] [address] [place] [address] [place] [address], * Cyclic citrul peptide antibody, IgG (09/25/2023 10:33 AM EST) Cyclic Citrullinated Peptide Ab 1.1 See comment 09/26/2023 11:36 AM EST [facility] Blood Venipuncture / Unknown 09/25/2023 10:33 AM EST 09/25/2023 10:33 AM EST Narrative [facility] - 09/26/2023 11:36 AM EST Negative: <7 Mayank U/ml Equivocal: 7-10 Mayank U/ml Positive: >10 Mayank U/ml Kelley Isidro PA-C LAB BLOOD ORDERABLES Final R esult [facility] [address] [facility] [place] [address], documented in this encounter Visit Diagnoses Diagnosis Fibromyalgia- Primary Unspecified myalgia and myositis Abnormal findings on diagnostic imaging of breast [...] documented as of this encounter Care Teams Advice Nurse Relationship Specialty Start Date End Date Ady Breen DO [address] [place] [id number] PCP - General 09/23/17 documented as of this encounter
--- OUTSIDE RECORDS SUMMARY | 2025-07-14 22:31 | XMS_ITS | Encounter Summary ---
Author Organization [facility] Address [address] [facility] [place] [address] Phone Care Team Providers Care Tube Cutter Name Role Phone NuhaAdy Primary Care Provider +1- [phone] Encounter Details Date Type Department Care Team (Late st Contact Info) Description 08/29/2021 Telephone [facility] [place] [address] [place] [address] Associates, Psychiatric [address] [place] [address] Social History Tobacco Use Types Packs/Day Years [...] documented as of this encounter Care Teams Tube Cutter Relationship Specialty Start Date End Date Ady Breen DO [address] [place] [phone] PCP - General 09/23/17 documented as of this encounter
--- OUTSIDE RECORDS SUMMARY | 2025-07-14 22:31 | XMS_ITS | Encounter Summary ---
Author Organization [facility] Address [address] [place] [address] Phone Care Team Providers Care Bullet Maker Name Role Phone NuhaAdy wu Primary Care Provider +1- [phone] Encounter Details Date Type Department Care Team (Late st Contact Info) Description 02/23/2024 Telephone [facility] [address] [place] [address] Aidan Levy Social History Tobacco Use Types Packs/Day Years [...] documented as of this encounter Care Teams Bullet Maker Relationship Specialty Start Date End Date Ady Breen DO [facility] [place] [id number] PCP - General 09/23/17 documented as of this encounter
--- OUTSIDE RECORDS SUMMARY | 2025-07-14 22:31 | XMS_ITS | Clinical Summary ---
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 Assessment & Plan (03/30/2018 8:50 PM EDT): Recommend leg elevation recommend ice will check a venous Doppler I will have the patient see general surgery for consideration of drainage, the hematoma is likely compressing a nerve. Wellness examination 01/14/2018 019 Assessment & Plan (01/14/2018 9:35 PM EDT): Assessment and plan 1. Health maintenance annual wellness examination overall the patient is clinically stable and doing well, we encouraged the patient to follow a healthy and balanced diet. We recommend that the patient exercise routinely approximately 30 minutes 5 times per week . We have reviewed the patient's vaccines and have made recommendations for updates if necessary Tdap . We will be ordering screening laboratories which are age appropriate. Return to the office in 3 call if any problems. Pelvic pain 11/18/2017 08/03/2019 Encounters Date Type Department Care Team Description 06/13/2025 Results Follow-Up [facility] [address] [id number] Ady Breen DO US breast left limited (diagnostic) 06/09/2025 7:51 AM EDT - 06/09/2025 11:59 PM EDT Hospital Encounter [facility] [address] [place] [address] Ady Breen DO Abnormal mammogram Discharge Disposition: Home/Self Care from Last 3 Months Immunizations Immunization Administration Dates Next Due Influenza Injectable, MDCK, Preservative Free, Quadrivalent, 0.5 mL 10/02/2023 Influenza Quadrivalent Prese rvative Free 3 years and older IM 09/10/2017 Influenza Quadrivalent, 6-35 Months IM 12/10/2016 Influenza, injectable, quadr ivalent, preservative free 0.5 mL 08/02/2021,06/07/2019 Influenza, seasonal, injecta ble, preservative free 08/05/2024 Tdap 01/14/2018 Tuberculin Skin Test-PPD Intradermal ,02/21/2020,06/07/2019,2017,01/28/2018 Family History Medical History Relation Comments Cervical cancer Cousin Asthma Daughter 1 Diabetes Daughter 1 Asthma Daughter 2 No Known Problems Father Uterine cancer Maternal Aunt 1 < age 50 Uterine cancer Maternal Aunt 2 > age 50 Kidney failure Maternal Grandfather Arthritis Maternal Grandmother Asthma Maternal Grandmother COPD Maternal Grandmother Cancer Maternal Grandmother Cervical cancer Maternal Grandmother Deep vein thrombosis Maternal Grandmother Diabetes Maternal Grandmother Heart disease Maternal Grandmother Hypertension Maternal Grandmother Osteoporosis Maternal Grandmother Rheum arthritis Maternal Grandmother Stroke Maternal Grandmother Uterine cancer Maternal Grandmother > age 50 No Known Problems Maternal Uncle Arthritis Mother Asthma Mother Autoimmune disease Mother Cervical cancer Mother Deep vein thrombosis Mother Tano's thyroiditis Mother Heart disease Mother Hypertension Mother Hypothyroidism Mother Migraines Mother Osteoporosis Mother Stroke Mother Thyroid disease Mother Colon cancer Other No Known Problems Paternal Grandfather No Known Problems Paternal Grandmother Autoimmune disease Sister 1 Tano's thyroiditis Sister 1 Lupus Sister 1 Migraines Sister 1 Thyroid cancer Sister 1 Thyroid disease Sister 1 Asthma Sister 2 Ovarian cancer Neg Hx Pancreatic cancer Neg Hx Relation Status Comments Cousin Alive Daughter 1 Alive Daughter 2 Alive Father Other Maternal Aunt 1 Alive Maternal Aunt 2 Alive Maternal Grandfather Maternal Grandmother Alive Maternal Uncle Alive Mother Other Great Great Mate rnal Grandmother Paternal Grandfather Other Paternal Grandmother Other Sister 1 Alive Sister 2 Alive Social History Tobacco Use Types Packs/Day Years [...] on file 03/14/20 Within the last year, was th ere a time you were unable to pay rent/mortgage or homeless or living in a jail? No 03/14/2025 Within the last year, was th ere a time you were unable to pay rent/mortgage or homeless or living in a jail? No 03/14/2025 Nursing - Inadequate Food Risk [...] on file Sexual Orientation Not on file Last Filed Vital Signs Vital Sign Reading Time Taken Comments Blood Pressure 128/67 04/09/2025 8:39 PM EDT Pulse 82 04/09/2025 8:39 PM EDT Temperature 36.4 C (97.6 F) 04/09/2025 8:39 PM EDT Respiratory Rate 16 04/09/2025 8:39 PM EDT Oxygen Saturation 99% 04/09/2025 8:39 PM EDT Inhaled Oxygen Concentration - - Weight 79.1 kg (174 lb 6.4 oz) 03/29/2025 2:03 P M EDT Height 152.4 cm (5') 03/29/2025 2:03 PM EDT Body Mass Index 34.06 03/29/2025 2:03 PM EDT Plan of Treatment Health Maintenance Due Date Last Done Comments Pneumococcal Vaccine: Pediatrics (0 to 5 Years) and At-Risk Patients (6 to 49 Years) (1 of 2 - PCV) 1996 CT Colonography 2022 Cologuard 2022 FOBTx3/FIT 2022 Sigmoidoscopy 2022 BMI: Followup Plan 09/01/2024 02/27/2021, 1 , 06/07/2019, Additional history exists Annual Physical 02/01/2025 02/02/2024 COVID-19 Vaccine ( season) 2025 11/09/2021, 01/17/2021, 12/20/2020 Influenza Vaccine (#1) 2025 , 10/02/2023, 08/02/2021, Additional history exists Depression Screening 03/23/2026 03/23/2025, 02/27/2021, 11/12/2019, Additional history exists BMI: Adult 03/29/2026 03/29/2025 Breast Cancer Screening: Mammogram 09/17/2026 09/17/2024, 08/21/2023, 07/10/2022, Additional history exists Zoster Vaccine (1 of 2) 2027 DTaP,Tdap,and Td Vaccines (2 - Td or Tdap) 01/15/2028 01/14/2018 Colonoscopy 02/22/2029 02/24/2024 Colorectal Cancer Screening 02/22/2029 HIV Screening Completed 10/07/2024, 04/24/2023 Hepatitis C Screening Completed 10/07/2024 , 05/30/2022, 06/22/2016 HIB Vaccine Aged Out No longer eligi ble based on patient's age to complete this topic HPV Vaccine Aged Out No longer eligi ble based on patient's age to complete this topic Hepatitis A Vaccine Aged Out No longe r eligible based on patient's age to complete this topic IPV Vaccine Aged Out No longer eligi ble based on patient's age to complete this topic Meningococcal ACWY Vaccine Aged Out N o longer eligible based on patient's age to complete this topic Meningococcal B Vaccine Aged Out No l onger eligible based on patient's age to complete this topic RSV Vaccine age 0-20 Months Aged Out No longer eligible based on patient's age to complete this topic Medical Devices Implanted Type Area Platen Press Feeder Device Identifier Shelf Expiration Date Model / Serial / Lot Plate Orbital Flr Anatomic 0.3mm Sm - [id number] Implanted:Qty: 1 on 03/14/2025 by Kody Hancock DMD at [facility] Right: [employer] [id number] / / Screw Matrixmidface 1.5 X 5mm Slf [facility] - [id number] Implanted:Qty: 2 on 03/14/2025 by Kody Hancock DMD at [facility] Right: [employer] [id number] / / Procedures Procedure Name Priority Date/Time Associated Diagnosis Comments US BREAST LEFT LIMITED (DIAGNOSTIC) Routine 06/09/2025 8:15 AM EDT Abnormal mammogram HEPATITIS C ANTIBODY Routine 10/07/2024 2:08 PM EST Screening for STDs (sexually transmitted diseases) HIV 1/2 AG/AB W REFLEX [facility] FOR 2 YR OLD AND ABOVE Routine 10/07/2024 2:08 PM EST Screening for STDs (sexually transmitted diseases) MAMMO DIAGNOSTIC BILATERAL W 3D AND CAD Routine 09/17/2024 11:09 AM EST Abnormal findings on diagnostic imaging of breast COLONOSCOPY Routine 02/24/2024 9:04 AM EDT Screening for colon cancer from Last 3 Months or Most Recently Relevant to Health Maintenance Results * US breast left limited (diagnostic) (06/09/2025 8:15 AM EDT) Anatomical Region Laterality Modality Breast Left Ultrasound Impressions 06/09/2025 4:06 PM EDT Cysts at 12:00 6 cm and 1:00 4 cm from the nipple within the left breast have decreased when compared to prior examinations. These cysts are considered benign and no further imaging follow-up is recommended. Stable appearance of probably benign masses (probable cysts) at 12:00 4-6 cm from the nipple within the left breast as detailed above. Recommend bilateral diagnostic mammogram and left breast ultrasound in 6 months. This will establish over 2 years of stability for the mass at 12:00 6 cm and 1 year stability for the mass at 12:00 4 cm from the nipple. ASSESSMENT/BI-RADS CATEGORY: Left: 3 - Probably Benign Overall: 3 - Probably Benign RECOMMENDATION: - Ultrasound in 6 months for the left breast. - Diagnostic mammogram in 6 months for both breasts. Workstation ID: [id number] Signed by: Cece Us MD Narrative 06/09/2025 4:06 PM EDT DIAGNOSIS: Abnormal mammogram TECHNIQUE: Ultrasound of the left breast(s) was performed. COMPARISONS: Prior breast imaging dated: 09/17/2024, 09/17/2024, 03/09/2024, 09/09/2023, 08/21/2023, 07/10/2022, 05/30/2021, 08/31/2019, 08/21/2019, and 10/16/2017 RELEVANT HISTORY: Family Breast Cancer History: No known family history of breast cancer. Family Medical History: Family medical history includes colon cancer in other. Personal History: Hormone history includes control. Surgical history includes oophorectomy. No known relevant medical history. RISK ASSESSMENT: 5 Year Tyrer-Cuzick: 0.6% 10 Year Tyrer-Cuzick: 1.28% Lifetime Tyrer-Cuzick: 6.2% INDICATION: Pili Belle is a 50 y.o. female presenting for follow-up of probably benign findings within the left breast. FINDINGS: LEFT 1) CYST [B]: At 12:00 6 cm from the nipple within the left breast, there is a benign simple cyst that measures 4 x 2 x 4 mm. Findings have slightly decreased in size when compared to prior ultrasounds. On initial ultrasound dated 09/09/2023, this cyst measured 5 x 3 x 5 mm. No further imaging follow-up of this cyst is recommended. 2) MASS [C]: There is an 11 mm x 7 mm x 4 mm oval, parallel, hypoechoic mass with circumscribed margins with no posterior features seen in the left breast at 12 o'clock, 6 cm from the nipple. Findings are not significantly changed when compared to prior ultrasounds dated back to 09/09/2023. Of note, on initial ultrasound dated 09/09/2023, this was labeled as 12:00 5 cm. Short interval follow-up is recommended. This will establish over 2 years of stability on subsequent imaging. 3) CYST [D]: There are 7 mm x 3 mm x 8 mm oval clustered microcysts with circumscribed margins seen in the left breast at 1 o'clock, 4 cm from the nipple. Findings have significantly decreased in size when compared to prior ultrasound dated 09/17/2024 where this measured 12 x 6 x 17 mm. Given significant decrease in size, no further imaging follow-up is recommended. 4) MASS [E]: There is a 4 mm x 3 mm x 10 mm oval, parallel, hypoechoic mass with circumscribed margins seen in the left breast at 12 o'clock, 4 cm from the nipple. Findings are unchanged when compared to prior ultrasound. Recommend short interval follow-up in 6 months. This will establish 1 year stability for this mass. us Ady Breen DO [facility] [place] ORDER[place]LES Final Re sult * HIV 1/2 AG/AB w Reflex [facility] for 2 yr old and above (10/07/2024 2:08 PM EST) HIV-1 p24 Antigen Non-React gillian Non-React gillian [facility] 219910/08/2024 10:18 AM EST [facility] HIV-1 Antibody Non-React gillian Non-React gillian BIOPLEX 219910/08/2024 10:18 AM EST [facility] HIV-2 Antibody Non-React gillian Non-React gillian BIOPLEX 219910/08/2024 10:18 AM EST [facility] HIV Ag-Ab 5th Gen Non-React gillian Non-React gillian BIOPLEX 219910/08/2024 10:18 AM EST [facility] Comment: A Non-Reactive test result does not preclude the possibility of exposure or infection with HIV-1 and/or HIV-2. Non-Reactive results can occur if the quantity of marker present is below the detection limits or is not present during the stage of disease in which a sample is collected. Repeat testing should be considered where there is clinical suspicion of infection. Blood Structure of right upper limb / Unknown Venipuncture / Unknown 10/07/2024 2:08 PM EST 10/07/2024 2:08 PM EST Narrative [facility] - 10/08/2024 10:18 AM EST This 5th generation HIV Ag-Ab assay is a multiplex flow immunoassay intended for qualitative detection and differentiation of HIV-1 p24 antigen, HIV-1 (groups M and O) antibodies, and HIV-2 antibodies in human serum. This assay is intended as an aid in the diagnosis of infection with HIV-1 and/or HIV-2, including acute (primary) HIV-1 infection. The test is validated for adult patients, including women, and in pediatric patients as young as two years of age. The performance of this assay has not been established for neonates. Parisa Caceres PA-C LAB BLOOD ORDERABLES Final Result [address] [place] [address], * Hepatitis C antibody (10/07/2024 2:08 PM EST) Hepatitis C Ab Non-reacti ve Non-Reacti ve 10/08/2024 9:35 AM EST [facility] Blood Structure of right upper limb / Unknown Venipuncture / Unknown 10/07/2024 2:08 PM EST 10/07/2024 2:08 PM EST Parisa Caceres PA-C LAB BLOOD ORDERABLES Final Result [facility] [address] [address], * Mammo diagnostic bilateral w 3d & [...] year for the right breast. Workstation ID: [id number] Signed by: MD Darlin Pelaez 09/17/2024 11:59 AM EST DIAGNOSIS: Abnormal findings [...] areolar complex are unremarkable. Ady Breen DO [facility] [place]AMMO[place]AP[place] ORDERABLES Final Result * Colonoscopy (02/24/2024 9:04 AM EDT) Anatomical Region Laterality Modality Endoscopy Impressions 02/24/2024 9:08 AM EDT Small, flat hemorrhoids RECOMMENDATION: Repeat colonoscopy in 5 years, due: 02/22/2029 Family history of colon cancer Kacy Buckley MD Narrative 02/24/2024 9:08 AM EDT Table formatting from the original result was not included. [facility] [address] [facility] [address] DATE OF SERVICE: 02/24/24 PHYSICIAN(S): Attending: Kacy Buckley MD Fellow: No Staff Documented INDICATION: Screening for colon cancer POST-OP DIAGNOSIS: See the impression below. HISTORY: Prior colonoscopy: 5 years ago. BOWEL PREPARATION: Miralax/Dulcolax PREPROCEDURE: Informed consent was obtained for the procedure, including sedation. Risks including but not limited to bleeding, infection, perforation, adverse drug reaction and aspiration were explained in detail. Also explained about less than 100% sensitivity with the exam and other alternatives. The patient was placed in the left lateral decubitus position. Procedure: Colonoscopy DETAILS OF PROCEDURE: Patient was taken to the procedure room where a time out was performed to confirm correct patient and correct procedure. The patient underwent monitored anesthesia care, which was administered by an anesthesia professional. The patient's blood pressure, ETCO2, heart rate, level of consciousness, oxygen and respirations were monitored throughout the procedure. A digital rectal exam was performed. A perianal exam was performed. The scope was introduced through the anus and advanced to the cecum. Retroflexion was performed in the rectum. The quality of bowel preparation was evaluated using the [place] Bowel Preparation Scale with scores of: right colon = 3, transverse colon = 3, left colon = 3. The total BBPS score was 9. Bowel prep was adequate. The patient experienced no blood loss. The procedure was not difficult. The patient tolerated the procedure well. There were no apparent adverse events. ANESTHESIA INFORMATION: ASA: II Anesthesia Type: IV Sedation with Anesthesia MEDICATIONS: No administrations occurring from 0845 to 0908 on 02/24/24 FINDINGS: Internal small, flat hemorrhoids observed during retroflexion EVENTS: Procedure Events Event Event Time ENDO CECUM REACHED 02/24/2024 8:55 AM ENDO SCOPE OUT TIME 02/24/2024 9:04 AM SPECIMENS: * No specimens in log * EQUIPMENT: Colonoscope - [address] END[address] V[address] LRG GREEN ID 11.2 Kacy Buckley MD GI PROCEDURE ORDERA BLES Final Result from Last 3 Months or Most Recently Relevant [place] [id number] [place] [place] [address] [place] [address] [facility] [place] [address] Advance Directives For more information, please contact: [phone] (8AM - 5:30 PM [facility], 7 days a week) * Level 1 - Full Code (Latest Code Status on File) Date Activated Date Inactivated Comments 03/14/2025 6:32 AM 03/15/2025 2:12 PM All life saving measures are indicated Question Answer Comments Resuscitation Order was discussed with (list all that apply): patient Healthcare Agents on File Name Relationship Healthcare [facility] Care Teams Historical Society Director Relationship Specialty Start Date End Date Ady Breen DO [address] [place] [address] [place] [address] PCP - General 09/23/17
--- OUTSIDE RECORDS SUMMARY | 2025-07-14 22:31 | XMS_ITS | Encounter Summary ---
Author Organization [facility] Address [address] [place] [address] Phone Care Team Providers Care Resort Manager Name Role Phone Ady Breen Primary Care Provider [phone]- [phone] Encounter Details Date Type Department Care Team (Latest Contact Info) Description 12/16/2024 Lab Requisition [facility] [address] [place] [address] x1 Adilene Edmondson DO [address] [place] [address] Encounter for other preprocedural examination Social History Tobacco Use Types Packs/Day Years [...] Type Priority Associated Diagnoses Orde r Schedule ABORh Recheck - Contact Blood Bank Prior to Collection Blood Bank Routine Encounter for other preprocedural examination Ordered: 12/16/2024 documented as of this encounter Procedures Procedure Name Priority Date/Time Associated Diagnosis Comments TYPE AND SCREEN Routine 12/16/2024 4:56 PM EDT Encounter for other preprocedural examination documented in this encounter Results * Type and screen (12/16/2024 4:56 PM EDT) ABO Grouping O 12/17/2024 12:29 AM EDT [facility] Rh Factor Positive 12/17/2024 12:29 AM EDT [facility] Antibody Screen Negative 12:29 AM EDT [facility] Specimen Expiration Date 2025011312/17/2024 12:29 AM EDT [facility] Blood 12/16/2024 4:56 PM EDT 12/16/2024 11:18 PM EDT Adilene Edmondson DO BLOOD BANK TEST ORDERABLES Rafy alecia Result - Final [facility] [address] [place] [address], documented in this encounter Visit Diagnoses Diagnosis Encounter for other preprocedural examination documented in this encounter Additional Health Concerns Assessment Noted Time PHQ-9 Depression Total Score: 6 02/02/20 24 4:03 PM EDT A Body Mass Index follow-up plan has been documented for the patient 03/01/2021 8:33 AM EDT PHQ-2 Depression Total Score: 0 02/28/20 21 4:24 PM EDT documented as of this encounter Care Teams Resort Manager Relationship Specialty Start Date End Date Ady Breen DO [address] [place] [id number] PCP - General 09/23/17 documented as of this encounter
--- OUTSIDE RECORDS SUMMARY | 2025-07-14 22:31 | XMS_ITS | Encounter Summary ---
Author Organization [facility] Address [address] [place] [address] Phone Care Team Providers Care Data Processing Systems Project Planner Name Role Phone Ady Breen Primary Care Provider +1- [phone] Encounter Details Date Type Department Care Team (Late st Contact Info) Description 02/25/2017 Lab Requisition [facility] [address] [place] [address] x1 Louise Garay MD [address] [id number] Urinary tract infection Social History Tobacco Use Types Packs/Day Years [...] Procedure Name Priority Date/Time Associated Diagnosis Comments URINE MICROSCOPIC Routine 02/25/2017 9:2 8 PM EDT Urinary tract infection UA W REFLEX TO MICROSCOPIC WITH REFLEX TO CULTURE Routine 02/25/2017 9:28 PM EDT Urinary tract infection URINE CULTURE STAT 02/25/2017 9:28 PM EDT Urinary tract infection documented in this encounter Results * Urine culture (02/25/2017 9:28 PM EDT) Urine Culture Escherichia coli KWAN 02/28/2017 9:21 AM EDT [facility] Urine 02/25/2017 9:28 PM EDT 02/25/2017 11:00 PM EDT Narrative Organism Antibiotic Method Susceptibility Escherichia coli Ampicillin ($$) KWAN <=8.00 ug/ml: Susceptible Escherichia coli Aztreonam ($$$) KWAN <=8 ug/ml: Susceptible Escherichia coli Cefazolin ($) KWAN <=8.00 ug/ml: Susceptible Escherichia coli Ciprofloxacin ($) KWAN <=1.00 ug/ml: Susceptible Escherichia coli Gentamicin ($$) KWAN <=4 ug/ml: Susceptible Escherichia coli Levofloxacin ($) KWAN <=2.00 ug/ml: Susceptible Escherichia coli Nitrofurantoin KWAN <=32 ug/ml: Susceptible Escherichia coli Piperacillin + Tazobactam ($$$) KWAN <=16 ug/ml: Susceptible Escherichia coli Tetracycline KWAN <=4 ug/ml: Susceptible Escherichia coli Tobramycin ($) KWAN <=4 ug/ml: Susceptible Escherichia coli Trimethoprim + Sulfa methoxazole ($$$) KWAN >2/38 ug/ml: Resistant Louise Garay MD MICROBIOLOGY - GENERAL OR DERABLES Final Result [facility] [address] [place] [address], * (ABNORMAL) Urine Microscopic (02/25/2017 9:28 PM EDT) RBC, UA 4-10(A) None Seen /hpf 02/25/2017 11:00 PM EDT [facility] WBC, UA Innumerab le(A) None Seen /hpf 02/25/2017 11:00 PM EDT [facility] Epithelial Cells None Seen None Seen, Occasional /hpf 02/25/2017 11:00 PM EDT [facility] Bacteria, UA Innumerab le(A) None Seen, Occasional /hpf 02/25/2017 11:00 PM EDT [facility] Hyaline Casts, UA None Seen None Seen /lpf 02/25/2017 11:00 PM EDT [facility] Urine 02/25/2017 9:28 PM EDT 02/25/2017 9:36 PM EDT us Louise Garay MD URINE ORDERABLES Final Re sult [facility] [address], [place] [address], [place] [phone] * (ABNORMAL) UA w Reflex to Microscopic w Reflex to Culture (02/25/2017 9:28 PM EDT) Color, UA Yellow 02/25/2017 10:58 PM EDT [facility] Clarity, UA Cloudy 02/25/2017 10:58 PM EDT [facility] Specific Crosby, UA 1.013 1.003 - 1.030 02/25/2017 10:58 PM EDT [facility] pH, UA 6.0 4.5 - 8.0 02/25/2017 10:58 PM EDT [facility] Leukocytes, UA Moderate(A) Negative 02/25/2017 10:58 PM EDT [facility] Nitrite, UA Negative Negative 02/25/2017 10:58 PM EDT [facility] Protein, UA Negative Negative mg/dl 02/25/2017 10:58 PM EDT [facility] Glucose, UA Negative Negative mg/dl 02/25/2017 10:58 PM EDT [facility] Ketones, UA Negative Negative mg/dl 02/25/2017 10:58 PM EDT [facility] Urobilinogen, UA 0.2 0.2, 1.0 E.U./dl E.U./dl 02/25/2017 10:58 PM EDT [facility] Bilirubin, UA Negative Negative 02/25/2017 10:58 PM EDT [facility] Occult Blood, UA Large(A) Negative 02/25/2017 10:58 PM EDT [facility] Urine 02/25/2017 9:28 PM EDT 02/25/2017 9:36 PM EDT Louise Garay MD URINE ORDERABLES Final Re sult [facility] [address] [place] [address], documented in this encounter Visit Diagnoses Diagnosis Urinary tract infection Urinary tract infection, site not specified documented in this encounter Additional Health Concerns Infection Onset Date Last Indicated Resolved Time COVID-19 Rule-Out 03/15/2020 03/15/2020 03/21/2020 6:06 PM EDT COVID-19 Rule-Out 08/13/2021 08/13/2021 08/14/2021 3:01 PM EST documented as of this encounter Care Teams Data Processing Systems Project Planner Relationship Specialty Start Date End Date Ady Breen DO [address] [place] [address] [place] [address] PCP - General 09/23/17 documented as of this encounter
--- OUTSIDE RECORDS SUMMARY | 2025-07-14 22:31 | XMS_ITS | Encounter Summary ---
Author Organization [facility] Address [address] [place] [address] Phone Care Team Providers Care Curator Name Role Phone Ady Breen Primary Care Provider [phone]- [phone] Encounter Details Date Type Department Care Team (Latest Contact Info) Description 03/01/2021 Transcribe Orders [facility] Laboratory Services [address] [place] [phone] Adilene Lazaro Screening examination for pulmonary tuberculosis (Primary Dx) Social History Tobacco Use Types [...] documented as of this encounter Results * Quantiferon TB Gold Plus (03/01/2021 1:09 PM EDT) QFT Nil 0.05 0 - 8.0 IU/ml 03/05/2021 7:27 AM EDT [facility] QFT TB1-NIL 0.00 IU/ml 03/05/2021 7:27 AM EDT [facility] QFT TB2-NIL 0.01 IU/ml 03/05/2021 7:27 AM EDT [facility] QFT Mitogen-NIL >10.00 IU/ml 7:27 AM EDT [facility] QFT Final Interpretation Negative Negative 03/05/2021 7:27 AM EDT [facility] Comment:No Interferon-gamma response to M. tuberculosis antigens detected. Infection with M. tuberculosis is unlikely. A single negative result does not exclude infection with M. tuberculosis. In patients at high risk for M. tuberculosis infection, a second test should be considered in accordance with the 2017 ATS/IDSA/CDC Clinical Practice Guidelines for Diagnosis of Tuberculosis in Adults and Children. False negative results can be a result of incorrect blood sample collection or handling of the specimen affecting lymphocyte function. Blood Venipuncture / Unknown 03/01/2021 1:09 PM EDT 03/01/2021 1:09 PM EDT us Ady Manzano MD LAB BLOOD ORDERABLES Final R esult [facility] [address] [facility] [place] [address], documented in this encounter Visit Diagnoses Diagnosis Screening examination for pulmonary tuberculosis- Primary documented in this encounter Additional Health [...] documented as of this encounter Care Teams Curator Relationship Specialty Start Date End Date Ady Breen DO [address] [place] [address] [place] [address] PCP - General 09/23/17 documented as of this encounter
--- OUTSIDE RECORDS SUMMARY | 2025-07-14 22:31 | XMS_ITS | Encounter Summary ---
Author Organization [facility] Address [address] [facility] [place] [address] Phone Care Team Providers Care Nutritionist Name Role Phone NuhaAdy wu Primary Care Provider +1- [phone] Encounter Details Date Type Department Care Team (Late st Contact Info) Description 08/07/2021 Telephone [facility] [place] [address] [place] [phone] Associates, Psychiatric [address] [place] [address] Social History Tobacco Use Types Packs/Day Years [...] documented as of this encounter Care Teams Nutritionist Relationship Specialty Start Date End Date Ady Breen DO [address] [place] [address] PCP - General 09/23/17 documented as of this encounter
--- OUTSIDE RECORDS SUMMARY | 2025-07-14 22:31 | XMS_ITS | Encounter Summary ---
Author Organization [facility] Address [address] [facility] [place] [address] Phone Care Team Providers Care Customer Engineering Specialist Name Role Phone Ady Breen DO Primary Care Provider +1- [phone] Encounter Details Date Type Department Care Team (Latest Contact Info) Description 05/30/2022 Transcribe Orders [facility] Laboratory Services [address] [place] [address] [place] [phone] Dalila Mederos Chronic pain of multiple joints (Primary Dx); Fibromyalgia Social History Tobacco Use Types Packs/Day Years [...] encounter Results * Quantiferon TB Gold Plus (05/30/2022 11:08 AM EDT) QFT Nil 0.03 0 - 8.0 IU/ml 06/01/2022 2:18 PM EDT [facility] QFT TB1-NIL 0.00 IU/ml 06/01/2022 2:18 PM EDT [facility] QFT TB2-NIL 0.01 IU/ml 06/01/2022 2:18 PM EDT [facility] QFT Mitogen-NIL >10.00 IU/ml 2:18 PM EDT [facility] QFT Final Interpretation Negative Negative 06/01/2022 2:18 PM EDT [facility] Comment:No Interferon-gamma response to M. [...] of the specimen affecting lymphocyte function. Blood Structure of right upper limb / Unknown Venipuncture / Unknown 05/30/2022 11:08 AM EDT 05/30/2022 11:21 AM EDT us Kelley Isidro PA-C LAB BLOOD ORDERABLES Final R esult [facility] [address] [place] [address] [place] [address], * Uric acid (05/30/2022 11:08 AM EDT) Uric Acid 2.2 2.0 - 7.5 mg/dL 05/30/2022 3:04 PM EDT [facility] Comment:Specimen collection should occur prior to Metamizole administration due to the potential for falsely depressed results. Blood Structure of right upper limb / Unknown Venipuncture / Unknown 05/30/2022 11:08 AM EDT 05/30/2022 11:21 AM EDT us Kelley Isidro PA-C LAB BLOOD ORDERABLES Final R esult Performing Organization Address City/[facility]/ZIP Co de Phone Number [facility] [address] [place] [address], [place] [phone] * Hepatitis C antibody (05/30/2022 11:08 AM EDT) Pathologist [facility] Hepatitis C Ab Non-reacti ve Non-reacti ve 05/30/2022 2:10 PM EDT [facility] Blood Structure of right upper limb / Unknown Venipuncture / Unknown 05/30/2022 11:08 AM EDT 05/30/2022 11:21 AM EDT Kelley Isidro PA-C LAB BLOOD ORDERABLES Final R esult Performing Organization Address [facility] Co de Phone Number [facility] [address] [place] [address], [place] [phone] * Hepatitis B surface antigen (05/30/2022 11:08 AM EDT) Pathologist [facility] Hepatitis B Surface Ag Non-react gillian Non-reactive, NonReactive - Confirmed 05/30/2022 2:10 PM EDT [facility] Blood Structure of right upper limb / Unknown Venipuncture / Unknown 05/30/2022 11:08 AM EDT 05/30/2022 11:21 AM EDT Kelley Isidro PA-C LAB BLOOD ORDERABLES Final R esult Performing Organization Address City/[facility] Co de Phone Number [facility] [address] [place] [address], [place] [phone] * Ehrlichia antibody panel (05/30/2022 11:08 AM EDT) Pathologist [facility] E.Chaffe[employer] IgG Negative Neg:<1:64 3:06 PM EDT [facility] E.[place]affe[employer] IgM Negative Neg:<1:20 3:06 PM EDT [facility] Comment: IgG titers if 1:64 or greater indicate exposure or acute and convalescent samples showing a four-fold increase, and/or the presence of IgM indicate recent or current infection. HGE IgG Titer Negative Neg:<1:64 06/04/2022 3:06 PM EDT [facility] Comment: HGE IgG levels are detectable 7 to 10 days post infection and persist approximately one year. HGE IgM Titer Negative Neg:<1:20 06/04/2022 3:06 PM EDT [facility] Comment: Due to a reagent backorder, this test was performed using a different assay. The reference interval for this alternate assay is: Negative <1:64 Positive 1:64 or greater IgM levels usually rise 3 to 5 days post infection and fall to normal levels in approximately 30 to 60 days. Blood Structure of right upper limb / Unknown Venipuncture / Unknown 05/30/2022 11:08 AM EDT 05/30/2022 11:21 AM EDT Narrative [facility] - 06/04/2022 3:06 PM EDT Performed at: [address] [place] [id number] Chili Pepper Grinder: Flores Snyder MD, Phone: [phone] Kelley Isidro PA-C LAB BLOOD ORDERABLES Final R esult [facility] [address] [place] [address], * Babesia microti antibody, IgG & Igm (05/30/2022 11:08 AM EDT) [facility] Babesia microti IgG <1:10 Neg:<1:10 06/04 3:06 PM EDT [facility] Comment: This test was developed and its performance characteristics determined by [employer]. It has not been cleared or approved by the U.S. Food and Drug Administration. The FDA has determined that such clearance or approval is not necessary. This test is used for clinical purposes. It should not be regarded as investigational or research. Babesia microti IgM <1:10 Neg:<1:10 06/04 3:06 PM EDT [facility] Blood Structure of right upper limb / Unknown Venipuncture / Unknown 05/30/2022 11:08 AM EDT 05/30/2022 11:21 AM EDT Narrative [facility] - 06/04/2022 3:06 PM EDT Performed at: 01 - [facility] [address] [id number] Chili Pepper Grinder: Flores Snyder MD, Phone: [phone] Kelley Isidro PA-C LAB BLOOD ORDERABLES Final R esult [facility] [address] [place] [address], * C-reactive protein (05/30/2022 11:08 AM EDT) CRP <3.0 <3.0 mg/L 05/30/2022 2:4 9 PM EDT [facility] Blood Structure of right upper limb / Unknown Venipuncture / Unknown 05/30/2022 11:08 AM EDT 05/30/2022 11:21 AM EDT Kelley FUNG-C LAB BLOOD ORDERABLES Final R esult Performing Organization Address [facility] Co de Phone Number [facility] [address] [place] [address], [place] [phone] * (ABNORMAL) Sedimentation rate, automated (05/30/2022 11:08 AM EDT) Sed Rate 20(H) 0 - 19 mm/hour 05/30/2022 1:47 PM EDT [facility] Blood Structure of right upper limb / Unknown Venipuncture / Unknown 05/30/2022 11:08 AM EDT 05/30/2022 11:21 AM EDT Kelley FUNG-C LAB BLOOD ORDERABLES Final R esult Performing Organization Address City/[facility]/ZIP Co de Phone Number [facility] [address] [place] [address], [place] [phone] * PRINCE Screen w/ Reflex to Titer/Pattern (05/30/2022 11:08 AM EDT) PRINCE Negative Negative 2022 12:57 PM EDT [facility] Blood Structure of right upper limb / Unknown Venipuncture / Unknown 05/30/2022 11:08 AM EDT 05/30/2022 11:21 AM EDT Narrative [facility] - 2022 12:57 PM EDT This test was performed using the Enzyme Immunoassay method. Kelley FUNG-C LAB BLOOD ORDERABLES Final R esult Performing Organization Address City/[facility]/ZIP Co de Phone Number [facility] [address] [address], * RF Screen w/ Reflex to Titer (05/30/2022 11:08 AM EDT) Pathologist [facility] Rheumatoid Factor Negative Negative 2022 12:56 PM EDT BE [address] [place] [address] Blood Structure of right upper limb / Unknown Venipuncture / Unknown 05/30/2022 11:08 AM EDT 05/30/2022 11:21 AM EDT Kelley Isidro PA-C LAB BLOOD ORDERABLES Final R esult Performing Organization Address City/[facility] Co de Phone Number BE [address] [place] [id number], * Lyme Antibody Profile with reflex to WB (05/30/2022 11:08 AM EDT) Pathologist [facility] Lyme Total Antibodies <0.2 0.2 - 8.0 AI 05/30/2022 3:18 PM EDT [facility] Comment:Negative (0.0-0.8) A bsence of detectable Borrelia burgdoferi Antibodies. A negative result does not exclude the possibility of Borrelia infection. If early Lyme disease is suspected,a second sample should be collected & tested 4 weeks after initial testing. Blood Structure of right upper limb / Unknown Venipuncture / Unknown 05/30/2022 11:08 AM EDT 05/30/2022 11:21 AM EDT Kelley Isidro PA-C LAB BLOOD ORDERABLES Final R esult Performing Organization Address City/[facility] Co de Phone Number [facility] [address] [facility] [place] [address], * HLA-B27 antigen (05/30/2022 11:08 AM EDT) HLA B27 Negative 06/08/2022 1:05 AM EDT [facility] Comment: HLA-B*27 Negative B27 allele interpretation for all loci based on IMGT/HLA database version 3.44 This test was developed and its performance characteristics determined by [facility]. It has not been cleared or approved by the Food and Drug Administration. [facility] CLIA ID Number [id number] This test was performed using PCR (Polymerase Chain Reaction)/SSOP (Sequence Specific Oligonucleotide Probes) technique. SBT (Sequence Based Typing) and/or SSP (Sequence Specific Primers) may be used as supplemental methods when necessary. Please contact [facility] Customer Service at if you have any questions. Director of [facility] Laboratory Dr Ray Henderson, PhD Blood Structure of right upper limb / Unknown Venipuncture / Unknown 05/30/2022 11:08 AM EDT 05/30/2022 11:21 AM EDT Narrative [facility] - 06/08/2022 1:05 AM EDT Performed at: [address] [place] [id number] Chili Pepper Grinder: Ray Henderson PhD, Phone: [phone] Kelley Isidro PA-C LAB BLOOD ORDERABLES Final R esult Performing Organization Address City/[facility]/ZIP Co de Phone Number [facility] [address] [place] [address], * Cyclic citrul peptide antibody, IgG (05/30/2022 11:08 AM EDT) Cyclic Citrullinated Peptide Ab 0.6 See comment 2022 8:57 AM EDT [facility] Blood Structure of right upper limb / Unknown Venipuncture / Unknown 05/30/2022 11:08 AM EDT 05/30/2022 11:21 AM EDT Narrative [facility] - 2022 8:57 AM EDT Negative: <7 Mayank U/ml Equivocal: 7-10 Mayank U/ml Positive: >10 Mayank U/ml Kelley Isidro PA-C LAB BLOOD ORDERABLES Final R esult [facility] [address] [place] [address], * Comprehensive metabolic panel (05/30/2022 11:08 AM EDT) Sodium 139 135 - 147 mmol/L 05/30/2022 3:04 PM EDT [facility] Potassium 4.0 3.5 - 5.3 mmol/L 05/30/2022 3:04 PM EDT [facility] Chloride 108 96 - 108 mmol/L 05/30/2022 3:04 PM EDT [facility] CO2 24 21 - 32 mmol/L 05/30/2022 3:04 PM EDT [facility] ANION GAP 7 4 - 13 mmol/L 05/30/2022 3:04 PM EDT [facility] BUN 12 5 - 25 mg/dL 05/30/2022 3:04 PM EDT [facility] Creatinine 0.86 0.60 - 1.30 mg/dL 05/30/2022 3:04 PM EDT [facility] Comment:Standardized to IDMS reference method Glucose 95 65 - 140 mg/dL 05/30/2022 3:04 PM EDT [facility] Comment: If the patient is fasting, the ADA then defines impaired fasting glucose as > 100 mg/dL and diabetes as > or equal to 123 mg/dL. Specimen collection should occur prior to Sulfasalazine administration due to the potential for falsely depressed results. Specimen collection should occur prior to Sulfapyridine administration due to the potential for falsely elevated results. Calcium 8.8 8.3 - 10.1 mg/dL 05/30/2022 3:04 PM EDT [facility] AST 12 5 - 45 U/L 05/30/2022 3:04 PM EDT [facility] Comment:Specimen collection should occur prior to Sulfasalazine administration due to the potential for falsely depressed results. ALT 20 12 - 78 U/L 05/30/2022 3:04 PM EDT [facility] Comment:Specimen collection should occur prior to Sulfasalazine and/or Sulfapyridine administration due to the potential for falsely depressed results. Alkaline Phosphatase 75 46 - 116 U/L 05/30/2022 3:04 PM EDT [facility] Total Protein 7.4 6.4 - 8.4 g/dL 05/30/2022 3:04 PM EDT [facility] Albumin 3.9 3.5 - 5.0 g/dL 05/30/2022 3:04 PM EDT [facility] Total Bilirubin 0.48 0.20 - 1.00 mg/dL 05/30/2022 3:04 PM EDT [facility] Comment:Use of this assay is not recommended for patients undergoing treatment with eltrombopag due to the potential for falsely elevated results. eGFR 82 ml/min/1. 73sq m 05/30/2022 3:04 PM EDT [facility] Blood Structure of right upper limb / Unknown Venipuncture / Unknown 05/30/2022 11:08 AM EDT 05/30/2022 11:21 AM EDT Narrative [facility] - 05/30/2022 3:04 PM EDT National Kidney Disease Foundation guidelines for Chronic Kidney Disease (CKD): Stage 1 with normal or high GFR (GFR > 90 mL/min/1.73 square meters) Stage 2 Mild CKD (GFR = 60-89 mL/min/1.73 square meters) Stage 3A Moderate CKD (GFR = 45-59 mL/min/1.73 square meters) Stage 3B Moderate CKD (GFR = 30-44 mL/min/1.73 square meters) Stage 4 Severe CKD (GFR = 15-29 mL/min/1.73 square meters) Stage 5 End Stage CKD (GFR <15 mL/min/1.73 square meters) Note: GFR calculation is accurate only with a steady state creatinine us Kelley Isidro PA-C LAB BLOOD ORDERABLES Final R esult [facility] [address] [place] [address], [place] [phone] * CK (with reflex to MB) (05/30/2022 11:08 AM EDT) Total CK 118 26 - 192 U/L 05/30/2022 3:04 PM EDT [facility] Blood Structure of right upper limb / Unknown Venipuncture / Unknown 05/30/2022 11:08 AM EDT 05/30/2022 11:21 AM EDT us Kelley Isidro PA-C LAB BLOOD ORDERABLES Final R esult Performing Organization Address [facility] de Phone Number [facility] [address] [place] [address], [place] [phone] * (ABNORMAL) Vitamin D 25 hydroxy (05/30/2022 11:08 AM EDT) Vit D, 25-Hydroxy 25.5(L) 30.0 - 100.0 ng/mL 05/30/2022 1:29 PM EDT [facility] Blood Structure of right upper limb / Unknown Venipuncture / Unknown 05/30/2022 11:08 AM EDT 05/30/2022 11:21 AM EDT Narrative [facility] - 05/30/2022 1:29 PM EDT This assay is a certified procedure of the CDC Vitamin D Standardization Certification Program (VDSCP) Deficiency <20ng/ml Insufficiency 20-30ng/ml Sufficient 30-100 ng/ml *Patients undergoing fluorescein dye angiography may retain small amounts of fluorescein in the body for 48-72 hours post procedure. Samples containing fluorescein can produce falsely elevated Vitamin D values. If the patient had this procedure, a specimen should be resubmitted post fluorescein clearance. us Kelley Isidro PA-C LAB BLOOD ORDERABLES Final R esult Performing Organization Address [facility] Co de Phone Number [facility] [address] [place] [address], [place] [phone] * TSH, 3rd generation (05/30/2022 11:08 AM EDT) TSH 3RD GENERATION 2.000 0.450 - 4.500 uIU/mL 05/30/2022 3:04 PM EDT [facility] Comment: The recommended reference ranges for TSH during are as follows: First trimester 0.1 to 2.5 uIU/mL Second trimester 0.2 to 3.0 uIU/mL Third trimester 0.3 to 3.0 uIU/m Note: Normal ranges may not apply to patients who are transgender, non-binary, or whose legal sex, sex at , and gender identity differ. Adult TSH (3rd generation) reference range follows the recommended guidelines of the [place] [employer], September,. Blood Structure of right upper limb / Unknown Venipuncture / Unknown 05/30/2022 11:08 AM EDT 05/30/2022 11:21 AM EDT Narrative [facility] - 05/30/2022 3:04 PM EDT Patients undergoing fluorescein dye angiography may retain small amounts of fluorescein in the body for 48-72 hours post procedure. Samples containing fluorescein can produce falsely depressed TSH values. If the patient had this procedure,a specimen should be resubmitted post fluorescein clearance. us Kelley Isidro PA-C LAB BLOOD ORDERABLES Final R esult Performing Organization Address City/[facility] Co de Phone Number [facility] [address] [place] [address], * Phosphorus (05/30/2022 11:08 AM EDT) Phosphorus 2.7 2.7 - 4.5 mg/dL 05/30/2022 3:04 PM EDT [facility] Blood Structure of right upper limb / Unknown Venipuncture / Unknown 05/30/2022 11:08 AM EDT 05/30/2022 11:21 AM EDT us Kelley Isidro PA-C LAB BLOOD ORDERABLES Final R esult [facility] [address] [place] [address], * Magnesium (05/30/2022 11:08 AM EDT) Pathologist [facility] Magnesium 2.3 1.6 - 2.6 mg/dL 05/30/2022 2:49 PM EDT [facility] Blood Structure of right upper limb / Unknown Venipuncture / Unknown 05/30/2022 11:08 AM EDT 05/30/2022 11:21 AM EDT Kelley Isidro PA-C LAB BLOOD ORDERABLES Final R esult [facility] [address] [place] [address], * Iron (05/30/2022 11:08 AM EDT) [facility] Iron 130 50 - 170 ug/dL 05/30/2022 3:04 PM EDT [facility] Comment:Patients treated wit h metal-binding drugs (ie. Deferoxamine) may have depressed iron values. Blood Structure of right upper limb / Unknown Venipuncture / Unknown 05/30/2022 11:08 AM EDT 05/30/2022 11:21 AM EDT Kelley Isidro PA-C LAB BLOOD ORDERABLES Final R [facility] Performing Organization Address City/[facility]/ZIP Co de Phone Number [facility] [address] [place] [address], * CBC and differential (05/30/2022 11:08 AM EDT) Pathologist [facility] WBC 5.49 4.31 - 10.16 Thousand/u L 05/30/2022 1:17 PM EDT [facility] RBC 4.50 3.81 - 5.12 Million/uL 05/30/2022 1:17 PM EDT [facility] Hemoglobin 13.6 11.5 - 15.4 g/dL 05/30/2022 1:17 PM EDT [facility] Hematocrit 41.4 34.8 - 46.1 % 05/30/2022 1:17 PM EDT [facility] MCV 92 82 - 98 fL 05/30/2022 1:17 PM EDT [facility] MCH 30.2 26.8 - 34.3 pg 05/30/2022 1:17 PM EDT [facility] MCHC 32.9 31.4 - 37.4 g/dL 05/30/2022 1:17 PM EDT [facility] RDW 12.8 11.6 - 15.1 % 05/30/2022 1:17 PM EDT [facility] MPV 10.0 8.9 - 12.7 fL 05/30/2022 1:17 PM EDT [facility] Platelets 322 149 - 390 Thousands/ uL 05/30/2022 1:17 PM EDT [facility] nRBC 0 /100 WBCs 05/30/2022 1:17 PM EDT [facility] Segmented % 68 43 - 75 % 05/30/2022 1:17 PM EDT [facility] Immature Grans % 0 0 - 2 % 05/30/20 1:17 PM EDT [facility] Lymphocytes % 24 14 - 44 % 05/30/2022 1:17 PM EDT [facility] Monocytes % 7 4 - 12 % 05/30/2022 1:17 PM EDT [facility] Eosinophils Relative 1 0 - 6 % 05/30/2022 1:17 PM EDT [facility] Basophils Relative 0 0 - 1 % 05/30/2022 1:17 PM EDT [facility] Absolute Neutrophils 3.70 1.85 - 7.62 Thousands/ L 05/30/2022 1:17 PM EDT [facility] Absolute Immature Grans 0.01 0.00 - 0.20 Thousand/u L 05/30/2022 1:17 PM EDT [facility] Absolute Lymphocytes 1.33 0.60 - 4.47 Thousands/ L 05/30/2022 1:17 PM EDT [facility] Absolute Monocytes 0.40 0.17 - 1.22 Thousand/ L 05/30/2022 1:17 PM EDT [facility] Eosinophils Absolute 0.03 0.00 - 0.61 Thousand/ L 05/30/2022 1:17 PM EDT [facility] Basophils Absolute 0.02 0.00 - 0.10 Thousands/ L 05/30/2022 1:17 PM EDT [facility] Blood Structure of right upper limb / Unknown Venipuncture / Unknown 05/30/2022 11:08 AM EDT 05/30/2022 11:21 AM EDT Kelley Isidro PA-C LAB BLOOD ORDERABLES Final R esult [facility] [address] [facility] [place] [address], documented in this encounter Visit Diagnoses Diagnosis Chronic pain of multiple joints- Primary Fibromyalgia Unspecified myalgia and myositis documented in this encounter Additional Health Concerns Assessment Noted Time PHQ-9 Depression Total Score: 0 02/28/20 21 4:24 PM EDT A Body Mass Index follow-up plan has been documented for the patient 03/01/2021 8:33 AM EDT PHQ-2 Depression Total Score: 0 02/28/20 21 4:24 PM EDT documented as of this encounter Care Teams Customer Engineering Specialist Relationship Specialty Start Date End Date Ady Breen DO [address] [place] [address] [place] [address] PCP - General 09/23/17 documented as of this encounter
--- OUTSIDE RECORDS SUMMARY | 2025-07-14 22:31 | XMS_ITS ---
Author Organization [id number]
--- NOTE | 2025-07-14 23:42 | PC.NURSE ---
took over care a 23:00, reviewed discharge instructions with pt. pt verbalized understanding, no sign of distress.
[2025-07-14 23:59] VITALS: BP 130/80; PULSE 78; RESP 18; TEMP 36.7; O2SAT 99
[2025-07-15 00:02] VITALS: BP 130/80; PULSE 78; RESP 18; TEMP 36.7; O2SAT 99
[2025-07-15 01:16] LABS: Bacterial Vaginosis PCR NEGATIVE (Negative); Candida Group PCR NOT DETECTED (Not Detect); Candida glab krusei PCR NOT DETECTED (Not Detect); Trichomonas vaginalis PCR NOT DETECTED (Not Detect)
[2025-07-15 01:48] LABS: CT PCR NOT DETECTED (Not Detect.); NG PCR NOT DETECTED (Not Detect.)
== END 2025-07-15 00:03 | disposition home or self-care (01) ==
PROVIDERS: Physician Assistant; Emergency Provider Emergency Medicine Emergency Medical Services
DX: N76.0 Acute vaginitis (principal); N39.0 Urinary tract infection, site not specified; R10.22 Pelvic and perineal pain left side; R30.0 Dysuria; R35.0 Frequency of micturition
CPT/HCPCS: 36415; 80053; 81001; 81025; 81515; 84702; 85025; 87491; 87591; 99284